=== PATIENT | female | born 1935 | race Caucasian/White ===

== ENCOUNTER 2022-01-08 02:07 | Observation (INO) ==
[2022-01-08] MEDS ORDERED: SODIUM CHLORIDE 0.9% 1000ML 1,000 ML IV SCH (02:15)
--- NOTE | 2022-01-08 02:21 | Emergency Department Note ---
History of Present Illness General Chief complaint: Illness Stated complaint: GENERALIZED ILLNESS,DIARRHEA, COUGH Time Seen by Provider: 01/08/22 02:14 Source: patient Mode of arrival: EMS Limitations: no limitations History of Present Illness Provider complaint: Cough, diarrhea, fatigue Onset (ago): day(s) 4 Treatments prior to arrival: none This is an 86-year-old female presents emergency department via EMS due to multiple complaints and recent illness. Patient states 4 days ago she began having a cough. She states the cough is typically nonproductive. Patient does have a prior history of tobacco abuse although does not use any home nebulizers/MDIs or home oxygen. She denies any overt shortness of breath. She states she had decreased appetite and generalized fatigue. She states the family members that she lives with are also ill. She is vaccinated against COVID and influenza. She states today she began having diarrhea in addition. Patient denies any black or bloody stools. She denies abdominal pain. Patient denies any history of heart problems. Pt seen during a time of high acuity and national emergency pandemic while wearing PPE. Home Medications Medication Instructions Recorded Confirmed Type amlodipine 5 mg tablet 5 mg PO DAILY 01/08/22 01/08/22 History fesoterodine 4 mg tablet,extended 4 mg PO DAILY 01/08/22 01/08/22 History release 24 hr (Toviaz) levothyroxine 88 mcg tablet 88 mcg PO DAILYBB 01/08/22 01/08/22 History mineral oil 5 ml PO DAILY 01/08/22 01/08/22 History nateglinide 60 mg tablet 60 mg PO AC 01/08/22 01/08/22 History rosuvastatin 10 mg tablet 10 mg PO HS 01/08/22 01/08/22 History sodium bicarbonate 325 mg tablet 325 mg PO BID 01/08/22 01/08/22 History sotalol 80 mg tablet (Sotalol AF) 80 mg PO BID 01/08/22 01/08/22 History telmisartan 80 mg tablet 80 mg PO DAILY 01/08/22 01/08/22 History tramadol 50 mg tablet 50 mg PO Q6 PRN 01/08/22 01/08/22 History Allergies Allergy/AdvReac Type Severity Reaction Status Date / Time Penicillins Allergy Unknown Hives Verified 01/08/22 02:39 Past Med/Surg History Social History Smoking Status: Former smoker Hx Alcohol Use: No Hx Substance Use: No Preferred Language: Puerto Rican Communication Ability: Effective Curriculum Development Manager Required: No Beliefs That Will Affect Care: None Current Living Situation: Family Other Information That Helps Us Care for You: No Feels Safe at Home: Yes Safety Concerns: Feels Safe At This Time Assistive Devices: Glasses Review of Systems A total of 10 systems reviewed and were otherwise negative All systems reviewed & are unremarkable except as noted in HPI & below Physical Exam GENERAL: alert, well appearing, well nourished, no distress, non-toxic EYE EXAM: normal conjunctiva, PERRL and EOM's grossly intact OROPHARYNX: no exudate, no erythema, lips, buccal mucosa, and tongue normal and mucous membranes are moist NECK: supple, no nuchal rigidity, no adenopathy, non-tender LUNGS: Coarse b/l to auscultation. Normal chest wall mechanics, no w/r/r, coarse cough noted during exam HEART: no murmurs, S1 normal and S2 normal ABDOMEN: abdomen soft, non-tender, normo-active bowel sounds, no masses, no rebound or guarding. BACK: Back is symmetrical on inspection and there is no deformity, no midline tenderness, no CVA tenderness. SKIN: no rashes and no bruising UPPER EXTREMITIES: upper extremities are grossly normal. FROM, nml pulses b/l. LOWER EXTREMITIES: No pitting edema. FROM, nml pulses b/l. NEURO EXAM: Normal sensorium, cranial nerves II-XII grossly intact, normal speech, no gross weakness of arms, no gross weakness of legs. Gross sensation intact. Course Administered Medications Amlodipine Besylate (Amlodipine Besylate 5 Mg Tab) 5 mg PO DAILY [facility] Stop: 02/07/22 08:59 Last Admin: 01/09/22 08:58 Dose: 5 mg Documented by: [id number] Admin: 01/08/22 10:29 Dose: 5 mg Documented by: [id number] Heparin Sodium (Porcine) (Heparin Sod 5,000 Unit/0.5 Ml Vial) 5,000 units SQ Q8 [facility] Stop: 02/07/22 13:59 Last Admin: 01/09/22 14:58 Dose: 5,000 units Documented by: [id number] Admin: 01/09/22 05:31 Dose: 5,000 units Documented by: [id number] Admin: 01/08/22 21:58 Dose: 5,000 units Documented by: [id number] Admin: 01/08/22 12:16 Dose: 5,000 units Documented by: [id number] Insulin Aspart (Insulin Aspart Per Unit) 0 units SC ACHS [facility] Stop: 02/07/22 09:14 Last Admin: 01/09/22 20:19 Dose: Not Given Documented by: [id number] Admin: 01/09/22 17:47 Dose: Not Given Documented by: [id number] Admin: 01/09/22 12:13 Dose: 2 units Documented by: [id number] Cosigned by: [id number] Admin: 01/09/22 08:59 Dose: Not Given Documented by: [id number] Admin: 01/08/22 21:52 Dose: Not Given Documented by: [id number] Admin: 01/08/22 17:24 Dose: Not Given Documented by: [id number] Cosigned by: [id number] Admin: 01/08/22 12:16 Dose: 2 units Documented by: [id number] Cosigned by: [id number] Admin: 01/08/22 09:01 Dose: Not Given Documented by: [id number] Cosigned by: [id number] Ipratropium [place] (Ipratropium [place] Neb Soln 0.02% 2.5 Ml Vial) 0.5 mg INH Q4H PRN PRN Reason: Shortness Of Breath Or Wheezing Stop: 02/07/22 08:48 Last Admin: 01/09/22 00:41 Dose: 0.5 mg Documented by: [id number] Levalbuterol HCl (Levalbuterol 1.25mg/0.5ml Neb) 1.25 mg INH Q4H PRN PRN Reason: Shortness Of Breath Or Wheezing Stop: 02/07/22 08:48 Last Admin: 01/09/22 00:41 Dose: 1.25 mg Documented by: [id number] Levothyroxine Sodium (Levothyroxine Sodium 88 Mcg Tablet) [facility] Stop: 02/07/22 09:14 Last Admin: 01/09/22 05:32 Dose: 88 mcg Documented by: [id number] Admin: 01/08/22 10:29 Dose: 88 mcg Documented by: [id number] Oseltamivir Phosphate (Oseltamivir Phosphate Susp 30 Mg/5 Ml Udp) 30 mg PO DAILY [facility]; Protocol Stop: 01/12/22 09:01 Last Admin: 01/09/22 10:30 Dose: 30 mg Documented by: [id number] Rosuvastatin Calcium (Rosuvastatin Calcium 10 Mg Tab) 10 mg PO HS [facility] Stop: 02/07/22 20:59 Last Admin: 01/09/22 20:25 Dose: 10 mg Documented by: [id number] Admin: 01/08/22 21:58 Dose: 10 mg Documented by: [id number] Sotalol HCl (Sotalol Hcl 80 Mg Tab) 80 mg PO BID [facility] Stop: 02/07/22 09:44 Last Admin: 01/09/22 20:19 Dose: Not Given Documented by: [id number] Admin: 01/09/22 08:58 Dose: 80 mg Documented by: [id number] Admin: 01/08/22 21:51 Dose: 80 mg Documented by: [id number] Admin: 01/08/22 10:29 Dose: 80 mg Documented by: [id number] Telmisartan (Telmisartan 40 Mg Tab) 80 mg PO DAILY [facility] Stop: 02/07/22 08:59 Last Admin: 01/09/22 08:58 Dose: 80 mg Documented by: [id number] Admin: 01/08/22 10:29 Dose: 80 mg Documented by: [id number] Discontinued Medications Albuterol (Albut/Ipratrop 3mg/0.5mg Neb 3 Ml Vial) 3 ml NEB NOW STA; Protocol Stop: 01/08/22 06:02 Last Admin: 01/08/22 06:24 Dose: 3 ml Documented by: [id number] Sodium Chloride (Nss 1000ml) 1,000 mls @ 125 mls/hr IV .Q8H [facility] Stop: 02/07/22 02:14 Last Infusion: 01/08/22 09:00 Dose: 0 mls/hr Documented by: [id number] Admin: 01/08/22 02:29 Dose: 125 mls/hr Documented by: [id number] Oseltamivir Phosphate (Oseltamivir Phosphate Susp 30 Mg/5 Ml Udp) 30 mg PO NOW STA; Protocol Stop: 01/08/22 05:53 Last Admin: 01/08/22 06:24 Dose: 30 mg Documented by: [id number] Medical Decision Making Differential Diagnosis Differential: Viral, Bacterial, Parasitic, Iatrogenic, C-Diff, Malabsorbtion, Irritable Bowel Disease, IBS, Ischemic Bowel, amongst other pathologies entertained. Medical Records Attestation: I reviewed the patient's medical records. Home Medications Current Medication List: was personally reviewed by me Laboratory Data Attestation: I reviewed the patient's lab results. Result diagrams: 01/09/22 06:03 01/09/22 06:03 Lab Results 01/08/22 01/08/22 01/08/22 Range/Units 02:24 02:24 02:24 WBC 14.45 H (4.8-10.8) K/uL RBC 4.95 (4.2-5.4) M/uL Hgb 13.8 (12.0-16.0) g/dL Hct 40.6 (37-47) % MCV 82.0 (80-100) fL MCH 27.9 (25-34) pg MCHC 34.0 (32-36) g/dL RDW Std Deviation 41.7 (36.4-46.3) fL RDW Coeff of Jeremy 13.9 (11.5-14.5) % Plt Count 278 (130-400) K/uL MPV 9.6 (7.4-10.4) fL Immature Gran % (Auto) 0.3 % Neut % (Auto) 83.6 % Lymph % (Auto) 9.1 % [place] % (Auto) 5.5 % Eos % (Auto) 1.3 % Baso % (Auto) 0.2 % Neut # (Auto) 12.07 H (1.4-6.5) K/uL Lymph # (Auto) 1.31 (1.2-3.4) K/uL [place] # (Auto) 0.80 H (0.11-0.59) K/uL Eos # (Auto) 0.19 (0-0.5) K/uL Baso # (Auto) 0.03 (0-0.2) K/uL Immature Gran # (Auto) 0.05 H (0.00-0.02) K/uL Sodium 128 L (136-145) mmol/L Potassium 4.2 (3.5-5.1) mmol/L Chloride 97 L (98-107) mmol/L Carbon Dioxide 20 L (21-32) mmol/L Anion Gap 11 (3-11) BUN 20 (6-23) mg/dl Creatinine 2.14 H (0.6-1.2) mg/dl Est Cr Clr Drug Dosing 18.4 ml/min Est GFR ( Amer) 23.7 ml/min Est GFR (Non-Af Amer) 20.5 ml/min BUN/Creatinine Ratio 9.3 L (10-20) Glucose 155 H (70-99(Fasting)) mg/dl Osmolality (280-300) mOsm/kg Calcium 9.2 (8.5-10.1) mg/dl Magnesium 2.0 (1.7-2.4) mg/dl Total Bilirubin 0.5 (0.2-1.0) mg/dl AST 11 L (13-39) U/L ALT 9 (7-52) U/L Alkaline Phosphatase 90 (34-104) U/L Troponin I High Sens 7.0 (0-14) pg/ml B-Natriuretic Peptide 121 H (0-100) pg/ml Total Protein 8.1 (6.0-8.3) gm/dl Albumin 4.1 (3.4-5.0) gm/dl Globulin 4.0 (2.5-4.0) gm/dl Albumin/Globulin Ratio 1.0 (0.9-2) TSH (0.300-4.500) uIu/ml Free T4 (0.61-1.60) ng/dl 01/08/22 01/08/22 Range/Units 02:24 02:24 WBC (4.8-10.8) K/uL RBC (4.2-5.4) M/uL Hgb (12.0-16.0) g/dL Hct (37-47) % MCV (80-100) fL MCH (25-34) pg MCHC (32-36) g/dL RDW Std Deviation (36.4-46.3) fL RDW Coeff of Jeremy (11.5-14.5) % Plt Count (130-400) K/uL MPV (7.4-10.4) fL Immature Gran % (Auto) % Neut % (Auto) % Lymph % (Auto) % [place] % (Auto) % Eos % (Auto) % Baso % (Auto) % Neut # (Auto) (1.4-6.5) K/uL Lymph # (Auto) (1.2-3.4) K/uL [place] # (Auto) (0.11-0.59) K/uL Eos # (Auto) (0-0.5) K/uL Baso # (Auto) (0-0.2) K/uL Immature Gran # (Auto) (0.00-0.02) K/uL Sodium (136-145) mmol/L Potassium (3.5-5.1) mmol/L Chloride (98-107) mmol/L Carbon Dioxide (21-32) mmol/L Anion Gap (3-11) BUN (6-23) mg/dl Creatinine (0.6-1.2) mg/dl Est Cr Clr Drug Dosing ml/min Est GFR ( Amer) ml/min Est GFR (Non-Af Amer) ml/min BUN/Creatinine Ratio (10-20) Glucose (70-99(Fasting)) mg/dl Osmolality 281 (280-300) mOsm/kg Calcium (8.5-10.1) mg/dl Magnesium (1.7-2.4) mg/dl Total Bilirubin (0.2-1.0) mg/dl AST (13-39) U/L ALT (7-52) U/L Alkaline Phosphatase (34-104) U/L Troponin I High Sens (0-14) pg/ml B-Natriuretic Peptide (0-100) pg/ml Total Protein (6.0-8.3) gm/dl Albumin (3.4-5.0) gm/dl Globulin (2.5-4.0) gm/dl Albumin/Globulin Ratio (0.9-2) TSH 4.725 H (0.300-4.500) uIu/ml Free T4 1.55 (0.61-1.60) ng/dl Imaging Data My Impression: X-ray: I interpreted the following studies. Chest: A single view study of the chest was reviewed and was negative for cardiomegaly, focal infiltrate, effusion, pulmonary edema, or wide mediastinum. ECG Data Attestation: I personally reviewed and interpreted this ECG as follows: Indication: + weakness Rate (beats per minute): 72 Rhythm: + normal sinus ECG Intervals/blocks: + Left bundle branch block ECG Harman: + Left axis deviation ECG ST segments: + Nonspecific ST abnormalities MDM Narrative An order was placed for continuous cardiac monitoring. The monitor shows a rate of _70_ with _normal sinus__ rhythm. This is an elderly female who presents with cough, weakness, diarrhea. VS stable. Coarse cough noted but patient denies SOB, no hypoxia noted. Patient lives with family who have also been ill. Labs revealed hyponatremia and elevated creatinine. Patient had been started on on gentle IVF rehydration due to concern for decreased appetite and diarrhea. No hx of IBS/IBD. Patient found to have influenza. 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 Hyponatremia appears new. Case discussed with hospitalist for additional evaluation and treatment. Impression & Plan Generalized weakness, Hyponatremia, Diarrhea, Influenza, CKD (chronic kidney disease) Discharge Plan Visit Data Chief Complaint: Illness Stated Complaint: GENERALIZED ILLNESS,DIARRHEA, COUGH Discharge Problem: Generalized weakness, Hyponatremia, Diarrhea, Influenza, CKD (chronic kidney disease) Patient Disposition: Admitted As Inpatient Discharge Instructions Interventions: ED Discharge Assessment Last Done: 01/08/22 07:48 Discharge Problem: Diarrhea Qualifiers: Diarrhea type: unspecified type Qualified Code(s): R19.7 - Diarrhea, unspecified CKD (chronic kidney disease) Qualifiers: Chronic kidney disease stage: unspecified stage Qualified Code(s): N18.9 - Chronic kidney disease, unspecified
[2022-01-08 02:37] LABS: Basophils # (auto) 0.03 K/uL (0-0.2); Basophils % (auto) 0.2 %; Eosinophils # (auto) 0.19 K/uL (0-0.5); Eosinophils % (auto) 1.3 %; Hematocrit (blood only) 40.6 % (37-47); Hemoglobin 13.8 g/dL (12.0-16.0); Immature Granulocytes # (auto) 0.05 K/uL (0.00-0.02); Immature Granulocytes % (auto) 0.3 %; Lymphocytes # (auto) 1.31 K/uL (1.2-3.4); Lymphocytes % (auto) 9.1 %; Mean Corpuscular Hemoglobin 27.9 pg (25-34); Mean Platelet Volume 9.6 fL (7.4-10.4); Monocytes % (auto) 5.5 %; Neutrophils # (auto) 12.07 K/uL (1.4-6.5); Neutrophils % (auto) 83.6 %; Platelet Count 278 K/uL (130-400); RDW Coefficient of Variation 13.9 % (11.5-14.5); RDW Standard Deviation 41.7 fL (36.4-46.3); Red Blood Count 4.95 M/uL (4.2-5.4); White Blood Count 14.45 K/uL (4.8-10.8)
[2022-01-08 03:09] LABS: Albumin Level 4.1 gm/dl (3.4-5.0); BUN Creatinine Ratio 9.3 (10-20); Bilirubin,Total 0.5 mg/dl (0.2-1.0); Calcium 9.2 mg/dl (8.5-10.1); Creatinine Clr Calc Pharmacy 18.4 ml/min; Est GFR (African American) 23.7 ml/min; Est GFR (Non-African American) 20.5 ml/min; Potassium 4.2 mmol/L (3.5-5.1); Total Protein 8.1 gm/dl (6.0-8.3)
[2022-01-08 03:11] LABS: Influenza B virus by PCR Negative (Neg); RSV by PCR Negative (Neg); SARS CoV2 RNA(COVID-19) InHosp NEGATIVE (Negative)
[2022-01-08 03:17] LABS: Influenza A virus by PCR Positive (Neg)
[2022-01-08] MEDS ORDERED: OSELTAMIVIR PHOSPHATE SUSP 30 MG/5 ML UDP PO STA (05:52)
[2022-01-08] MEDS ORDERED: ALBUT/IPRATROP 3MG/0.5MG NEB 3 ML VIAL NEB STA (06:01)
[2022-01-08 06:02] LABS: Thyroid Stimulating Hormone 4.725 uIu/ml (0.300-4.500)
--- NOTE | 2022-01-08 06:02 | History & Physical Report ---
Date of Service January 08, 2022 Assessment & Plan (1) Hyponatremia: Plan: Secondary to poor p.o. intake,/diarrhea symptoms secondary to influenza chronic CHF, patient on the dry side hypertension, stable hyperlipidemia on statin Rx Hypothyroidism, TSH slight elevated CRI, creatinine at baseline anxiety/mood disorder, at baseline DM2 on oral medications, well-controlled as of recent hemoglobin A1c of 28 July 2021 past tobacco abuse Medical telemetry Careful correction of sodium Hyponatremia work-up Nephrology consult if with worsening Tamiflu dosed for renal function given patient risk factors Basal bolus insulin, ISS BG goal 1 10-1 40, update hemoglobin A1c PT OT eval DVT prophylaxis. Heparin subcu Full code Patient son requesting updates from providers. Mr. Devin Arenas, contact #[phone]. Text document was generated using [employer] voice recognition software. It may contain grammatical or spelling errors. Kindly contact undersigned for clarification of any documentation item in question. History of Present Illness Chief Complaint: Weakness Primary Care Provider: OMI WHITTAKER History obtained from patient, family, and records. Medical history significant for chronic CHF, hypertension, hyperlipidemia, CRI (baseline creatinine 2.4-2.5), hypothyroidism, anxiety/mood disorder, DM2 on oral medications, past tobacco abuse. Patient not feeling well the last few days. Dry cough symptoms without chest pain, SOB. Poor appetite. Patient feeling achy all over. Sick contacts at home. Patient received COVID-19 and influenza vaccinations. Watery diarrhea without abdominal pain complaints. No recent antibiotic Rx. Patient brought to the ER for evaluation. 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 Allergies Allergy/AdvReac Type Severity Reaction Status Date / Time Penicillins Allergy Unknown Hives Verified 01/08/22 02:39 Home Medications Medication Instructions Recorded Confirmed Type amlodipine 5 mg tablet 5 mg PO DAILY 01/08/22 01/08/22 History fesoterodine 4 mg tablet,extended 4 mg PO DAILY 01/08/22 01/08/22 History release 24 hr (Toviaz) levothyroxine 88 mcg tablet 88 mcg PO DAILYBB 01/08/22 01/08/22 History mineral oil 5 ml PO DAILY 01/08/22 01/08/22 History nateglinide 60 mg tablet 60 mg PO AC 01/08/22 01/08/22 History rosuvastatin 10 mg tablet 10 mg PO HS 01/08/22 01/08/22 History sotalol 80 mg tablet (Sotalol AF) 80 mg PO BID 01/08/22 01/08/22 History telmisartan 80 mg tablet 80 mg PO DAILY 01/08/22 01/08/22 History tramadol 50 mg tablet 50 mg PO Q6 PRN 01/08/22 01/08/22 History Past Med/Surg History Social History Smoking Status: Former smoker Preferred Language: Turkmen Feels Safe at Home: Yes Review of Systems Review of Systems: As per HPI, all other systems reviewed and negative Physical Exam Physical Exam: GENERAL: uncomfortable, obese, wane, slightly hard of hearing, no respiratory distress SKIN: Pallor, warm HEENT: Pale palpebral conjunctivae, no ptosis, dry buccal mucosa NECK : Supple, short neck, no tenderness CHEST : Expiratory wheezes, no tenderness HEART : RRR, no obvious murmurs ABDOMEN: Some distention, nontender EXTREMITIES : Minimal LE swelling, no LE tenderness, no other conspicuous deformities noted NEUROLOGIC : Coherent, no facial asymmetry, slightly hard of hearing, gait and stance not assessed Results & Data Results & Data ([facility]) Vital Signs (Past 12 Hours) Vital Signs Temp Pulse Resp BP Pulse Ox 01/08/22 05:30 70 20 139/64 97 01/08/22 05:00 68 20 137/57 L 97 01/08/22 04:30 69 18 139/81 96 01/08/22 04:00 69 17 132/53 L 95 01/08/22 03:31 74 23 161/69 H 97 01/08/22 03:00 73 24 122/77 97 01/08/22 02:30 72 20 162/73 H 97 01/08/22 02:18 36.7 C 74 16 169/68 H 98 Laboratory Results Laboratory Results WBC 14.45 K/uL (4.8-10.8) H 01/08/22 02:24 RBC 4.95 M/uL (4.2-5.4) 01/08/22 02:24 Hgb 13.8 g/dL (12.0-16.0) 01/08/22 02:24 Hct 40.6 % (37-47) 01/08/22 02:24 MCV 82.0 fL (80-100) 01/08/22 02:24 MCH 27.9 pg (25-34) 01/08/22 02:24 MCHC 34.0 g/dL (32-36) 01/08/22 02:24 RDW Std Deviation 41.7 fL (36.4-46.3) 01/08/22 02:24 RDW Coeff of Jeremy 13.9 % (11.5-14.5) 01/08/22 02:24 Plt Count 278 K/uL (130-400) 01/08/22 02:24 MPV 9.6 fL (7.4-10.4) 01/08/22 02:24 Immature Gran % (Auto) 0.3 % 01/08/22 02:24 Neut % (Auto) 83.6 % 01/08/22 02:24 Lymph % (Auto) 9.1 % 01/08/22 02:24 [place] % (Auto) 5.5 % 01/08/22 02:24 Eos % (Auto) 1.3 % 01/08/22 02:24 Baso % (Auto) 0.2 % 01/08/22 02:24 Neut # (Auto) 12.07 K/uL (1.4-6.5) H 01/08/22 02:24 Lymph # (Auto) 1.31 K/uL (1.2-3.4) 01/08/22 02:24 [place] # (Auto) 0.80 K/uL (0.11-0.59) H 01/08/22 02:24 Eos # (Auto) 0.19 K/uL (0-0.5) 01/08/22 02:24 Baso # (Auto) 0.03 K/uL (0-0.2) 01/08/22 02:24 Immature Gran # (Auto) 0.05 K/uL (0.00-0.02) H 01/08/22 02:24 Sodium 128 mmol/L (136-145) L 01/08/22 02:24 Potassium 4.2 mmol/L (3.5-5.1) 01/08/22 02:24 Chloride 97 mmol/L (98-107) L 01/08/22 02:24 Carbon Dioxide 20 mmol/L (21-32) L 01/08/22 02:24 Anion Gap 11 (3-11) 01/08/22 02:24 BUN 20 mg/dl (6-23) 01/08/22 02:24 Creatinine 2.14 mg/dl (0.6-1.2) H 01/08/22 02:24 Est Cr Clr Drug Dosing 18.4 ml/min 01/08/22 02:24 Est GFR ( Amer) 23.7 ml/min 01/08/22 02:24 Est GFR (Non-Af Amer) 20.5 ml/min 01/08/22 02:24 BUN/Creatinine Ratio 9.3 (10-20) L 01/08/22 02:24 Glucose 155 mg/dl (70-99(Fasting)) H 01/08/22 02:24 Osmolality 281 mOsm/kg (280-300) 01/08/22 02:24 Calcium 9.2 mg/dl (8.5-10.1) 01/08/22 02:24 Magnesium 2.0 mg/dl (1.7-2.4) 01/08/22 02:24 Total Bilirubin 0.5 mg/dl (0.2-1.0) 01/08/22 02:24 AST 11 U/L (13-39) L 01/08/22 02:24 ALT 9 U/L (7-52) 01/08/22 02:24 Alkaline Phosphatase 90 U/L (34-104) 01/08/22 02:24 Troponin I High Sens 7.0 pg/ml (0-14) 01/08/22 02:24 B-Natriuretic Peptide 121 pg/ml (0-100) H 01/08/22 02:24 Total Protein 8.1 gm/dl (6.0-8.3) 01/08/22 02:24 Albumin 4.1 gm/dl (3.4-5.0) 01/08/22 02:24 Globulin 4.0 gm/dl (2.5-4.0) 01/08/22 02:24 Albumin/Globulin Ratio 1.0 (0.9-2) 01/08/22 02:24 SARS-CoV-2 (PCR) NEGATIVE (Negative) 01/08/22 Unknown Influenza Type A (PCR) Positive (Neg) A* 01/08/22 Unknown Influenza Type B (PCR) Negative (Neg) 01/08/22 Unknown RSV (RT-PCR) Negative (Neg) 01/08/22 Unknown Diagnostic Findings Chest x-ray as per my interpretation cardiomegaly EKG as per my interpretation : Rate 70, NSR, LAD, LAFB, LBBB
--- NOTE | 2022-01-08 06:44 | XRay Report ---
XR chest 1V portable HISTORY: 86 years-old Female cough acute cough COMPARISON: None TECHNIQUE: Portable AP view of the chest FINDINGS: Cardiac silhouette is enlarged. There is a curvilinear line projected over the right lung apex. No pl eural effusion, airspace consolidation or overt pulmonary edema. Bones of the chest appear grossly in tact. IMPRESSION: 1. Cardiomegaly without pulmonary edema. 2. Curvilinear line projected over the right lung apex. This could be correlated with follow-up inspi ration and expiration views to exclude a small pneumothorax. ACT 112: Negative or not required by law. The above report was generated using voice recognition software. It may contain grammatical, syntax o r spelling errors. Electronically signed by: Raymundo Cortez M.D. 01/08/2022 6:43 AM
[2022-01-08 06:50] LABS: T4 Free Thyroxine 1.55 ng/dl (0.61-1.60)
[2022-01-08] MEDS ORDERED: XOPENEX/ATROVENT 1.25mg/0.5MG NEB COMBO NEB PRN (08:49)
[2022-01-08] MEDS ORDERED: IPRATROPIUM BROMIDE NEB SOLN 0.02% 2.5 ML VIAL INH PRN (08:49)
[2022-01-08] MEDS ORDERED: CARBOHYDRATES FOR HYPOGLYCEMIA PO PRN (08:49)
[2022-01-08] MEDS ORDERED: GLUCOSE 10 TABS/TUBE PO PRN (08:49)
[2022-01-08] MEDS ORDERED: PROMETHAZINE HCL 12.5 MG in SODIUM CHLORIDE 0.9% 50 ML IV PRN (08:49)
[2022-01-08] MEDS ORDERED: GLUCOSE 40% GEL 15 GM TUBE PO PRN (08:49)
[2022-01-08] MEDS ORDERED: DEXTROSE 50% 50 ML SYRINGE IV PRN (08:49)
[2022-01-08] MEDS ORDERED: LEVALBUTEROL 1.25MG/0.5ML NEB INH PRN (08:49)
[2022-01-08] MEDS ORDERED: GLUCAGON FOR INJ 1 MG VIAL SQ PRN (08:49)
[2022-01-08] MEDS ORDERED: oxyCODONE HCL IR 5 MG TAB (IMMEDIATE RELEASE) PO PRN (08:49)
[2022-01-08] MEDS ORDERED: ACETAMINOPHEN 325 MG TAB PO PRN (08:49)
[2022-01-08] MEDS: INSULIN ASPART PER UNIT SC SCH ×4 (09:01→21:52)
[2022-01-08] MEDS: amLODIPine BESYLATE 5 MG TAB PO SCH (10:29)
[2022-01-08] MEDS: LEVOTHYROXINE SODIUM 88 MCG TABLET PO SCH (10:29)
[2022-01-08] MEDS: SOTALOL HCL 80 MG TAB PO SCH ×2 (10:29→21:51)
[2022-01-08] MEDS: TELMISARTAN 40 MG TAB PO SCH (10:29)
--- NOTE | 2022-01-08 10:35 | XRay Report ---
XR chest 2V PA/lateral HISTORY: 86 years-old Female Rule out Pneumothorax acute shortness of breath COMPARISON: Chest radiograph of same day at 2:40 AM TECHNIQUE: AP and lateral views of the chest FINDINGS: Cardiac silhouette is mildly enlarged. The right apical line seen on the prior study is not appreciat ed on the current study and was likely artifactual. No pneumothorax, pleural effusion, airspace conso lidation or overt pulmonary edema. Degenerative changes of the shoulders and spine. IMPRESSION: No acute process, specifically no pneumothorax is identified. ACT 112: Negative or not required by law. The above report was generated using voice recognition software. It may contain grammatical, syntax o r spelling errors. Electronically signed by: Raymundo Cortez M.D. 01/08/2022 10:33 AM
[2022-01-08] MEDS: HEPARIN SOD 5,000 UNIT/0.5 ML VIAL SQ SCH ×2 (12:16→21:58)
--- NOTE | 2022-01-08 16:46 | Hospitalist Progress Note ---
Date of Service January 08, 2022 Assessment & Plan (1) Hyponatremia: Plan: Hyponatremia Likely secondary to dehydration/Poor oral intake, diarrhea Received IV fluids Monitor Sodium levels Sodium 129 Urine sodium, osmolality pending Urine analysis pending Influenza A infection Negative COVID, RSV screen --CXR:No acute process Continue Oseltamivir Saturating well on room air Droplet precautions Diarrhea Likely secondary to above Stool for C. difficile negative Monitor volume status Chronic CHF No signs of volume overload Monitor volume status Hypertension Continue telmisartan, amlodipine Also on Sotalol Hyperlipidemia Continue statin Hypothyroidism Mildly elevated TSH Normal free T4 Continue levothyroxine CKD IV Baseline creatinine ~ 2.4 Monitor volume status Avoid nephrotoxic agents as able DM II Hold PO meds Last HbA1C 6.Jul ISS while hospitalized Anxiety/mood disorder at baseline Past Tobacco abuse Generalized weakness PT OT eval DVT Px: Heparin SQ Code Status Full code Admission and Anticipated Discharge Date Admission Date: January 08, 2022 Subjective Patient is seen and examined at bedside States feeling slightly better this morning Reports cough, generalized weakness Also had a loose bowel movement today Denies any chest pain, dyspnea, abdominal pain, dizziness Offers no other complaints Review of Systems Review of Systems: All systems reviewed & are unremarkable except as noted in Subjective Physical Exam Physical Exam: Exam: Vitals signs as noted above General Appearance:Moderately built and nourished, no apparent distress, Elderly Head: normocephalic, Atraumatic Eyes: normal inspection, EOMI Neck: supple, Trachea midline Respiratory/Chest: Normal breath sounds, scant wheezes Cardiovascular: S1, S2, No murmur Abdomen/GI:Soft, Non tender, Bowel sounds present Extremities/Musculoskeletal:normal inspection, Trace pedal edema Neurologic/Psych:AAOX3, grossly no focal neurological deficits Skin: normal color, warm Results & Data Results & Data ([facility]) Vital Signs (Past 12 Hours) Vital Signs Temp Pulse Pulse Resp BP BP Pulse Ox 01/08/22 16:01 71 01/08/22 14:00 36.8 C 71 20 148/82 H 94 01/08/22 11:05 71 165/78 H 95 01/08/22 08:41 36.7 C 76 20 169/79 H 92 01/08/22 07:48 77 24 133/64 96 01/08/22 07:30 77 24 133/64 96 01/08/22 07:00 70 20 133/64 95 05/19/22 06:30 79 23 138/68 99 01/08/22 06:00 85 18 149/68 H 95 01/08/22 05:30 70 20 139/64 97 01/08/22 05:00 68 20 137/57 L 97 Laboratory Results Short CBC 01/08/22 Range/Units 02:24 WBC 14.45 H (4.8-10.8) K/uL Hgb 13.8 (12.0-16.0) g/dL Hct 40.6 (37-47) % Plt Count 278 (130-400) K/uL BMP 01/08/22 01/08/22 01/08/22 02:24 08:30 13:44 Sodium 128 L 130 L 129 L Potassium 4.2 Chloride 97 L Carbon Dioxide 20 L BUN 20 Creatinine 2.14 H Glucose 155 H Calcium 9.2 Liver Function 01/08/22 Range/Units 02:24 Total Bilirubin 0.5 (0.2-1.0) mg/dl AST 11 L (13-39) U/L ALT 9 (7-52) U/L Alkaline Phosphatase 90 (34-104) U/L Albumin 4.1 (3.4-5.0) gm/dl
--- NOTE | 2022-01-08 18:13 | Electrocardiogram Report ---
Test Reason : Blood Pressure : / mmHG Vent. Rate : 072 BPM Atrial Rate : 072 BPM P-R Int : 178 ms QRS Dur : 142 ms QT Int : 456 ms P-R-T Axes : 080 -44 100 degrees QTc Int : 499 ms Normal sinus rhythm with sinus arrhythmia Left axis deviation Left bundle branch block Abnormal ECG No previous ECGs available Confirmed by Jeff Valentine ([id number]) on 01/08/2022 6:12:40 PM Referred By: REFERRED SELF Confirmed By:Som Valentine
[2022-01-08] MEDS: ROSUVASTATIN CALCIUM 10 MG TAB PO SCH (21:58)
[2022-01-09] MEDS: HEPARIN SOD 5,000 UNIT/0.5 ML VIAL SQ SCH ×3 (05:31→22:09)
[2022-01-09] MEDS: LEVOTHYROXINE SODIUM 88 MCG TABLET PO SCH (05:32)
[2022-01-09 06:57] LABS: Basophils # (auto) 0.01 K/uL (0-0.2); Basophils % (auto) 0.1 %; Eosinophils # (auto) 0.05 K/uL (0-0.5); Eosinophils % (auto) 0.6 %; Hematocrit (blood only) 36.5 % (37-47); Hemoglobin 12.1 g/dL (12.0-16.0); Immature Granulocytes # (auto) 0.04 K/uL (0.00-0.02); Immature Granulocytes % (auto) 0.5 %; Lymphocytes # (auto) 1.54 K/uL (1.2-3.4); Lymphocytes % (auto) 17.8 %; Mean Corpuscular Hemoglobin 27.3 pg (25-34); Mean Corpuscular Hgb Conc 33.2 g/dL (32-36); Mean Corpuscular Volume 82.2 fL (80-100); Mean Platelet Volume 9.6 fL (7.4-10.4); Monocytes % (auto) 8.1 %; Neutrophils # (auto) 6.32 K/uL (1.4-6.5); Neutrophils % (auto) 72.9 %; Platelet Count 286 K/uL (130-400); RDW Coefficient of Variation 13.8 % (11.5-14.5); RDW Standard Deviation 41.8 fL (36.4-46.3); Red Blood Count 4.44 M/uL (4.2-5.4); White Blood Count 8.66 K/uL (4.8-10.8)
[2022-01-09 07:05] LABS: BUN Creatinine Ratio 8.8 (10-20); Calcium 8.7 mg/dl (8.5-10.1); Creatinine Clr Calc Pharmacy 20.2 ml/min; Est GFR (African American) 26.9 ml/min; Est GFR (Non-African American) 23.2 ml/min
[2022-01-09] MEDS: amLODIPine BESYLATE 5 MG TAB PO SCH (08:58)
[2022-01-09] MEDS: TELMISARTAN 40 MG TAB PO SCH (08:58)
[2022-01-09] MEDS: SOTALOL HCL 80 MG TAB PO SCH ×2 (08:58→20:19)
[2022-01-09] MEDS: INSULIN ASPART PER UNIT SC SCH ×4 (08:59→20:19)
[2022-01-09] MEDS: OSELTAMIVIR PHOSPHATE SUSP 30 MG/5 ML UDP PO SCH (10:30)
--- NOTE | 2022-01-09 16:29 | Hospitalist Progress Note ---
Date of Service January 09, 2022 Assessment & Plan (1) Hyponatremia: Plan: Hyponatremia Likely secondary to dehydration/Poor oral intake, diarrhea Received IV fluids Urine sodium, osmolality pending Urine analysis pending Monitor Sodium levels Sodium 130 Influenza A infection Negative COVID, RSV screen --CXR:No acute process Continue Oseltamivir Saturating well on room air Droplet precautions Diarrhea Likely secondary to above Stool for C. difficile negative Monitor volume status Improved Chronic CHF unclear Systolic or diastolic No signs of volume overload Monitor volume status Hypertension Continue telmisartan, amlodipine Also on Sotalol Hyperlipidemia Continue statin Hypothyroidism Mildly elevated TSH Normal free T4 Continue levothyroxine CKD IV Baseline creatinine ~ 2.4 Monitor volume status Avoid nephrotoxic agents as able DM II Hold PO meds Last HbA1C 6.Jul ISS while hospitalized Anxiety/mood disorder at baseline Past Tobacco abuse Generalized weakness PT OT eval DVT Px: Heparin SQ Code Status Full code Admission and Anticipated Discharge Date Admission Date: January 08, 2022 Subjective Patient is seen and examined at bedside Doing much better today Less cough today Denies any diarrhea, dyspnea, chest pain, abdominal pain, dizziness Offers no other complaints Review of Systems Review of Systems: All systems reviewed & are unremarkable except as noted in Subjective Physical Exam Physical Exam: Exam: Vitals signs as noted above General Appearance:Moderately built and nourished, no apparent distress, Elderly Head: normocephalic, Atraumatic Eyes: normal inspection, EOMI Neck: supple, Trachea midline Respiratory/Chest: Normal breath sounds, CTA Cardiovascular: S1, S2, No murmur Abdomen/GI:Soft, Non tender, Bowel sounds present Extremities/Musculoskeletal:normal inspection, Trace pedal edema Neurologic/Psych:AAOX3, grossly no focal neurological deficits Skin: normal color, warm Results & Data Results & Data ([facility]) Vital Signs (Past 12 Hours) Vital Signs Temp Pulse Pulse Resp BP BP Pulse Ox 01/09/22 15:18 36.7 C 69 17 136/76 93 01/09/22 10:54 36.9 C 59 L 18 117/71 91 01/09/22 08:49 01/09/22 08:00 70 01/09/22 06:48 36.9 C 68 18 145/72 H 94 Pulse Ox 01/09/22 15:18 01/09/22 10:54 01/09/22 08:49 92 01/09/22 08:00 01/09/22 06:48 Laboratory Results Short CBC 01/09/22 Range/Units 06:03 WBC 8.66 (4.8-10.8) K/uL Hgb 12.1 (12.0-16.0) g/dL Hct 36.5 L (37-47) % Plt Count 286 (130-400) K/uL BMP 01/09/22 06:03 Sodium 130 L Potassium 4.0 Chloride 101 Carbon Dioxide 21 BUN 17 Creatinine 1.93 H Glucose 90 Calcium 8.7
[2022-01-09] MEDS: ROSUVASTATIN CALCIUM 10 MG TAB PO SCH (20:25)
[2022-01-09 23:37] LABS: Appearance Urine Cloudy (Clear); Bacteria Urine Automated 3+ (Negative); Bilirubin Urine Negative (Negative); Blood Urine 1+ (Negative); Cast Urine Automated 0 /lpf (0-5); Color Urine Yellow; Epithelial Cell Urine Auto 20-30 /lpf (0-5); Glucose Urine UA Negative (Negative); Ketones Urine Negative (Negative); Leukocyte Esterase Urine 3+ (Negative); Nitrite Urine Negative (Negative); Protein Urine 1+ (Negative); Specific Gravity Urine 1.006 (1.000-1.030); Urobilinogen Urine Negative (Negative); pH Urine 6.5 (4.5-7.5)
[2022-01-10] MEDS: HEPARIN SOD 5,000 UNIT/0.5 ML VIAL SQ SCH (05:59)
[2022-01-10] MEDS: LEVOTHYROXINE SODIUM 88 MCG TABLET PO SCH (05:59)
[2022-01-10] MEDS ORDERED: cefTRIAXone SODIUM 1,000 MG in DEXTROSE 5% 50 ML IV SCH (08:45)
[2022-01-10] MEDS: INSULIN ASPART PER UNIT SC SCH ×2 (08:57→12:34)
[2022-01-10] MEDS: TELMISARTAN 40 MG TAB PO SCH (08:58)
[2022-01-10] MEDS: amLODIPine BESYLATE 5 MG TAB PO SCH (08:58)
[2022-01-10] MEDS: SOTALOL HCL 80 MG TAB PO SCH (08:58)
[2022-01-10 09:10] LABS: BUN Creatinine Ratio 11.5 (10-20); Calcium 8.8 mg/dl (8.5-10.1); Creatinine Clr Calc Pharmacy 21.3 ml/min; Est GFR (African American) 28.7 ml/min; Est GFR (Non-African American) 24.7 ml/min; Potassium 3.8 mmol/L (3.5-5.1)
[2022-01-10] MEDS: OSELTAMIVIR PHOSPHATE SUSP 30 MG/5 ML UDP PO SCH (09:13)
--- NOTE | 2022-01-10 14:50 | Hospitalist Progress Note ---
Date of Service January 10, 2022 Assessment & Plan (1) Hyponatremia: Plan: Hyponatremia Likely secondary to dehydration/Poor oral intake, diarrhea Received IV fluids Urine sodium 33 Urine Osmolality 169 Monitor Sodium levels Sodium 131 Influenza A infection Negative COVID, RSV screen --CXR:No acute process Continue Oseltamivir Saturating well on room air Droplet precautions Abnormal Urine Analysis Possible UTI Denies any urinary symptoms Urine Culture pending Empirically started on Rocephin Diarrhea Likely secondary to above Stool for C. difficile negative Monitor volume status Improved Chronic CHF unclear Systolic or diastolic No signs of volume overload Monitor volume status Hypertension Continue telmisartan, amlodipine Also on Sotalol Hyperlipidemia Continue statin Hypothyroidism Mildly elevated TSH Normal free T4 Continue levothyroxine CKD IV Baseline creatinine ~ 2.4 Monitor volume status Avoid nephrotoxic agents as able DM II Hold PO meds Last HbA1C 6.Jul ISS while hospitalized Anxiety/mood disorder at baseline Past Tobacco abuse Generalized weakness PT OT eval done DVT Px: Heparin SQ Code Status Full code Disposition Home Admission and Anticipated Discharge Date Admission Date: January 08, 2022 Subjective Patient is seen and examined at bedside No new complaints Eager to get discharged Minimal cough Denies any diarrhea, dyspnea, chest pain, dysuria, hematuria, abdominal pain, dizziness Offers no other complaints Review of Systems Review of Systems: All systems reviewed & are unremarkable except as noted in Subjective Physical Exam Physical Exam: Exam: Vitals signs as noted above General Appearance:Moderately built and nourished, no apparent distress, Elderly Head: normocephalic, Atraumatic Eyes: normal inspection, EOMI Neck: supple, Trachea midline Respiratory/Chest: Normal breath sounds, CTA Cardiovascular: S1, S2, No murmur Abdomen/GI:Soft, Non tender, Bowel sounds present Extremities/Musculoskeletal:normal inspection, Trace pedal edema Neurologic/Psych:AAOX3, grossly no focal neurological deficits Skin: normal color, warm Results & Data Results & Data ([facility]) Vital Signs (Past 12 Hours) Vital Signs Temp Pulse Pulse Resp BP BP Pulse Ox 01/10/22 10:53 36.6 C 67 18 129/72 95 01/10/22 08:00 75 01/10/22 07:56 36.6 C 69 16 161/69 H 94 01/10/22 04:32 81 01/10/22 02:52 37.1 C 66 18 152/77 H 95 Laboratory Results [facility] 01/10/22 07:40 Sodium 131 L Potassium 3.8 Chloride 101 Carbon Dioxide 22 BUN 21 Creatinine 1.83 H Glucose 110 H Calcium 8.8 Urine 01/09/22 Range/Units 23:22 Urine Color Yellow Urine Appearance Cloudy A (Clear) Urine pH 6.5 (4.5-7.5) Ur Specific [place] 1.006 (1.000-1.030) Urine Protein 1+ H (Negative) Urine Glucose (UA) Negative (Negative)
--- NOTE | 2022-01-10 15:00 | Discharge Summary ---
Date of Service January 10, 2022 Admission HPI Per Admitting Provider History obtained from patient, family, and records. Medical history significant for chronic CHF, hypertension, hyperlipidemia, CRI (baseline creatinine 2.4-2.5), hypothyroidism, anxiety/mood disorder, DM2 on oral medications, past tobacco abuse. Patient not feeling well the last few days. Dry cough symptoms without chest pain, SOB. Poor appetite. Patient feeling achy all over. Sick contacts at home. Patient received COVID-19 and influenza vaccinations. Watery diarrhea without abdominal pain complaints. No recent antibiotic Rx. Patient brought to the ER for evaluation. 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 Admission Exam Per Admitting Provider Physical Exam Physical Exam: GENERAL: uncomfortable, obese, wane, slightly hard of hearing, no respiratory distress SKIN: Pallor, warm HEENT: Pale palpebral conjunctivae, no ptosis, dry buccal mucosa NECK : Supple, short neck, no tenderness CHEST : Expiratory wheezes, no tenderness HEART : RRR, no obvious murmurs ABDOMEN: Some distention, nontender EXTREMITIES : Minimal LE swelling, no LE tenderness, no other conspicuous deformities noted NEUROLOGIC : Coherent, no facial asymmetry, slightly hard of hearing, gait and stance not assessed Principal Diagnosis Hyponatremia Influenza A infection Possible urinary tract infection Discharge Data Allergies Allergy/AdvReac Type Severity Reaction Status Date / Time Penicillins Allergy Unknown Hives Verified 01/08/22 02:39 Hospital Course (1) Hyponatremia: Hyponatremia Likely secondary to dehydration/Poor oral intake, diarrhea Received IV fluids Urine sodium 33 Urine Osmolality 169 Monitor Sodium levels Sodium 131 Influenza A infection Negative COVID, RSV screen --CXR:No acute process Continue Oseltamivir Saturating well on room air Droplet precautions Abnormal Urine Analysis Possible UTI Denies any urinary symptoms Urine Culture pending Empirically started on Rocephin Diarrhea Likely secondary to above Stool for C. difficile negative Monitor volume status Improved Chronic CHF unclear Systolic or diastolic No signs of volume overload Monitor volume status Hypertension Continue telmisartan, amlodipine Also on Sotalol Hyperlipidemia Continue statin Hypothyroidism Mildly elevated TSH Normal free T4 Continue levothyroxine CKD IV Baseline creatinine ~ 2.4 Monitor volume status Avoid nephrotoxic agents as able DM II Hold PO meds Last HbA1C 6.Jul ISS while hospitalized Anxiety/mood disorder at baseline Past Tobacco abuse Generalized weakness PT OT eval done DVT Px: Heparin SQ Code Status Full code Disposition Home Total Time Total Time Spent Total Time Spent (In Minutes): 46 minutes Discharge Plan Discharge Items Patient Disposition: Home - Self-Care Reason For Visit: HYPONATREMIA Discharge Diagnosis: Hyponatremia Influenza A infection Possible urinary tract infection Activity: Per Instructions section Exercise/Sports: Gradually increase as tolerated Non-emergency contact: Primary Care Provider Call non-emergency contact if: you have any medication questions, your symptoms worsen, your pain is concerning for you and you have a fever Follow-up/Referrals: Richard Rooney, [Primary Care Provider] - Diet: Carb Consistent or DM2 Addtl Attending Provider Instructions: Follow-up history of primary care physician in 1 week as advised --- Your urine culture is pending at the time of discharge. Follow-up with your physician for results. --- Continue Tamiflu for influenza infection, Cefdinir for urinary tract infection as prescribed. Seek immediate medical attention if your symptoms reoccur or worsen Please take all medications as instructed on discharge list below. Please call if you have any questions or problems. You can reach a [facility] hospitalist on duty at [facility] 24 hours a day by calling [phone] Pending Studies at Discharge: Yes Studies:: Urine Culture Stand-Alone Forms: [facility], Smoking Cessation Medications and DC Order Prescriptions: New oseltamivir [Tamiflu] 30 mg capsule 30 mg PO DAILY Qty: 2 RF: 0 cefdinir 300 mg capsule 300 mg PO DAILY Qty: 4 RF: 0 Continued sotalol [Sotalol AF] 80 mg tablet 80 mg PO BID RF: 0 amlodipine 5 mg tablet 5 mg PO DAILY RF: 0 nateglinide 60 mg tablet 60 mg PO AC RF: 0 levothyroxine 88 mcg tablet 88 mcg PO DAILYBB RF: 0 Toviaz 4 mg tablet extended release 24 hr 4 mg PO DAILY RF: 0 tramadol 50 mg tablet 50 mg PO Q6 PRN (Reason: mod-severe pain) RF: 0 telmisartan 80 mg tablet 80 mg PO DAILY RF: 0 rosuvastatin 10 mg tablet 10 mg PO HS RF: 0 mineral oil Oil 5 ml PO DAILY RF: 0 sodium bicarbonate 325 mg tablet 325 mg PO BID RF: 0 Discharge Orders: Discharge Order (Routine); Ordered 01/10/22 Ordered By: Kevin Whitley Admission Data Admit Date/Time: 01/08/22 06:05 Attending Provider: Kevin Whitley Admit Provider: Devon Pantoja Primary Care Provider: Richard Rooney
== END 2022-01-10 16:08 | disposition home or self-care (01) | DRG 194 ==
LOC: ED 02:07 → 2N 06:05 → INTOOBSV 06:05 → 2N 07:48

== ENCOUNTER 2023-04-07 13:40 | Inpatient (IN) ==
[2023-04-07] MEDS ORDERED: SODIUM CHLORIDE 0.9% 500 ML IV ONE (13:53)
[2023-04-07] MEDS ORDERED: ONDANSETRON INJ 2 MG/ML 2 ML VIAL IV STA (13:53)
--- NOTE | 2023-04-07 13:54 | Emergency Department Note ---
Impression & Plan Respiratory failure with hypoxia, Hyponatremia, CKD (chronic kidney disease), Junctional rhythm ED Provider Note NAME: BILL PALAFOX AGE: 87 SEX: F : 1935 ARRIVES VIA: Ambulance INFORMANT: Patient ED PROVIDER(S): Zack Rawls DO CHIEF COMPLAINT: abdominal pain HPI: Patient is an 87-year-old female with a past medical history of hypertension, hyperlipidemia, diabetes who presents to the ER for periumbilical abdominal pain which started 2 days ago. Last bowel movement was 2 days ago. She admits to nausea and 1 episode of vomiting. Denies any headache or change in vision. No chest pain or shortness of breath. No dysuria, urgency, or frequency. No other exacerbating or remitting factors. PAST MEDICAL HISTORY:See Below PAST SURGICAL HISTORY:See Below FAMILY HISTORY:See Below SOCIAL HISTORY:See Below HOME MEDICATIONS:See Below ALLERGIES:See Below VITALS:See Below PHYSICAL EXAMINATION: GENERAL: Sitting up in bed, alert, well appearing, well nourished, no distress, non-toxic EYE EXAM: normal conjunctiva. OROPHARYNX: no exudate, no erythema, lips, buccal mucosa, and tongue normal and mucous membranes are moist NECK: supple, no nuchal rigidity, no adenopathy, non-tender LUNGS: Clear to auscultation. Normal chest wall mechanics HEART: no murmurs, S1 normal and S2 normal ABDOMEN: abdomen soft, tender to palpation periumbilically, normo-active bowel sounds, no masses, no rebound or guarding. UPPER EXTREMITIES: upper extremities are grossly normal. LOWER EXTREMITIES: No pitting edema. NEURO EXAM: Normal sensorium, cranial nerves II-XII grossly intact, normal speech, no gross weakness of arms, no gross weakness of legs. MEDICAL DECISION MAKING: Patient is an 87-year-old female who presents to the ER for abdominal pain. IV was established blood was obtained. Labs show mild leukocytosis 12,000. No significant anemia. BMP with a creatinine of 2.39 consistent with previous. Hyponatremia at 122. Bilirubin LFTs was unremarkable. Troponin was negative. Lipase was normal. UA was clean. CT of the chest abdomen pelvis shows pleural effusion with CHF. Patient was given Lasix. Initial EKG showed a sinus bradycardia and repeat suggestive of junctional rhythm. Discussed the case with Jl Echols for further evaluation management and admission. Discussed with Dr. Mayo for possible placement in the ICU he recommends currently that she does not need to be placed in the unit. Discussed the case with Dr. Batista from cardiology who recommended consulting Dr. Lockhart for possible temporary pacemaker. Discussed with Dr. Lockhart and as patient is currently hemodynamically stable with appropriate blood pressures in the 140s to 160s we will hold on temporary pacer. If the patient drops her pressures and becomes u nstable in any way he recommends calling him and they will immediately place a temporary pacemaker. Patient initially was on 15 L and was titrated down to 6 L. She is feeling better. Triage Nursing notes reviewed. Limited review of prior medical records performed Vital Signs: reviewed and remarkable for no significant abnormalities Differential diagnosis: Differential diagnoses includes but is not limited to gastritis, peptic ulcer disease, GERD, gallbladder disease, pancreatitis, small bowel obstruction, appendicitis, diverticulitis, hernia, urinary tract infection, torsion, perforation, trauma, infectious. ER treatment provided: See below Diagnostics interpreted by me include EKG and cardiac monitoring as listed below: -Cardiac Monitoring: An order was placed for continuous cardiac monitoring. The monitor shows a rate of 50 with sinus rhythm. -ECG: Sinus bradycardia rate of 40 Normal axis No PVCs Septal Q waves QTc 466 EKG #2 Junctional rhythm rate of 34 Wide-complex QRS Left bundle branch block Left axis Inferior Q waves QTc 419 -Laboratory studies:Interpreted by me as stated above in MDM and shown below. Imaging studies: Xrays: As interpreted by me: Portable AP upright 1 view the chest shows no focal infiltrate CTs show: CT of the chest abdomen pelvis showed pleural effusions with pulmonary edema Consultation(s): As described in [facility] Procedures:none Critical Care: I have personally spent 80 minutes of critical care time in the direct management of this patient. This includes bedside care, interpretation of diagnostic studies, and testing, discussion with consultants, patient, and family members, and other required patient management activities. This 80 minutes is in excess of all separately billable procedures. Past Med/Surg History Medical History (Updated 04/07/23 @ 19:30 by Zack Rawls DO) Chronic low back pain CKD (chronic kidney disease) CKD (chronic kidney disease) stage 4, GFR 15-29 ml/min Diabetes mellitus HLD (hyperlipidemia) HTN (hypertension) Hyponatremia Influenza Osteoarthritis of back Vitamin D deficiency Family History (Updated 04/18/23 @ 11:21 by AURORA Das) Mother Ovarian cancer Father Mouth cancer Social History (Updated 12/08/22 @ 11:22 by AURORA Das) Smoking Status: Former smoker Tobacco Type: Cigarettes Second Hand Exposure: No; Do You Dip or Chew Tobacco: No; Hx Alcohol Use: No Hx Substance Use: No Preferred Language: Georgian Communication Ability: Effective Visual Impairment: No Limitations Hearing Ability: Normal Bookkeeping 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 Required: No Beliefs That Will Affect Care: None marital status: / Current Living Situation: Family Current Living Situation Comment: SON &daughter in-law current occupational status: retired Feels Safe at Home: Yes Childhood Exposure to Second-Hand Smoke: No Assistive Devices: Glasses Allergies Allergies Allergy/AdvReac Type Severity Reaction Status Date / Time Penicillins Allergy Unknown Hives Verified 04/07/23 17:46 Home Meds Home Medications Medication Instructions Recorded Confirmed amlodipine 5 mg tablet 5 mg PO DAILY 01/08/22 04/07/23 rosuvastatin 10 mg tablet 10 mg PO HS 01/08/22 04/07/23 sotalol 80 mg tablet (Sotalol AF) 80 mg PO BID 01/08/22 04/07/23 telmisartan 80 mg tablet 80 mg PO DAILY 01/08/22 04/07/23 lancets 12/08/22 04/07/23 levothyroxine 88 mcg tablet 88 mcg PO DAILY 04/07/23 04/07/23 Previous Rx's Medication Instructions Recorded aspirin 81 mg capsule 81 mg PO DAILY #30 caps 12/08/22 loratadine 10 mg capsule 10 mg PO DAILY PRN allergy 12/08/22 symptoms #30 caps sodium bicarbonate 325 mg tablet 325 mg PO BID PRN stomach upset #1 12/08/22 tab fesoterodine 4 mg tablet,extended 4 mg PO DAILY 90 days #90 tabs 03/19/23 release 24 hr (Toviaz) tramadol 50 mg tablet 50 mg PO Q6H PRN mod-severe pain 03/19/23 25 days #100 tabs nateglinide 60 mg tablet 60 mg PO AC #90 tabs 03/29/23 Results & Data (ED) Vital Signs Vital Signs - 24 hr 04/07/23 13:50 04/07/23 14:23 04/07/23 14:33 Temperature 36.6 C Temperature Source Oral Pulse Rate 49 L 48 L Pulse Rate [Apical] 48 L Pulse Rate from SpO2 Sensor Respiratory Rate 20 16 Respiratory Effort / Characteristics Non-Labored Spontaneous Respiratory Depth Normal Respiratory Pattern Regular Blood Pressure 158/75 H Blood Pressure [Left Arm] 150/84 H Blood Pressure Mean 102 Blood Pressure Mean [Left Arm] 106 Pulse Oximetry 94 88 L Oxygen Delivery Method Room Air Room Air Oxygen Flow Rate Sepsis Recent Fever Within 48 Hours No Sepsis New/Unexplained Change in Mental Status N/A Sepsis Action Taken by Nursing No Action Required 04/07/23 14:45 04/07/23 14:50 04/07/23 14:47 Temperature Temperature Source Pulse Rate Pulse Rate [Apical] Pulse Rate from SpO2 Sensor Respiratory Rate Respiratory Effort / Characteristics Respiratory Depth Respiratory Pattern Blood Pressure Blood Pressure [Left Arm] Blood Pressure Mean Blood Pressure Mean [Left Arm] Pulse Oximetry 80 L 87 L 84 L Oxygen Delivery Method Nasal Cannula Oxymask Nasal Cannula Oxygen Flow Rate 3 10 6 Sepsis Recent Fever Within 48 Hours Sepsis New/Unexplained Change in Mental Status Sepsis Action Taken by Nursing 04/07/23 14:53 04/07/23 14:24 04/07/23 14:30 Temperature Temperature Source Pulse Rate 47 L 49 L Pulse Rate [Apical] 46 L Pulse Rate from SpO2 Sensor 47 L 49 L Respiratory Rate 15 23 22 Respiratory Effort / Characteristics Spontaneous Respiratory Depth Respiratory Pattern Regular Blood Pressure Blood Pressure [Left Arm] 168/106 H Blood Pressure Mean Blood Pressure Mean [Left Arm] 126 Pulse Oximetry 96 94 90 Oxygen Delivery Method Non-rebreather Oxygen Flow Rate 15 Sepsis Recent Fever Within 48 Hours Sepsis New/Unexplained Change in Mental Status Sepsis Action Taken by Nursing 04/07/23 14:40 04/07/23 14:50 04/07/23 14:52 Temperature Temperature Source Pulse Rate 48 L 46 L Pulse Rate [Apical] Pulse Rate from SpO2 Sensor 48 L 47 L Respiratory Rate 21 28 H Respiratory Effort / Characteristics Respiratory Depth Respiratory Pattern Blood Pressure 168/106 H Blood Pressure [Left Arm] Blood Pressure Mean 128 Blood Pressure Mean [Left Arm] Pulse Oximetry 84 L 91 Oxygen Delivery Method Oxygen Flow Rate Sepsis Recent Fever Within 48 Hours Sepsis New/Unexplained Change in Mental Status Sepsis Action Taken by Nursing 04/07/23 14:52 04/07/23 15:00 04/07/23 15:00 Temperature Temperature Source Pulse Rate 47 L 45 L Pulse Rate [Apical] Pulse Rate from SpO2 Sensor 48 L 46 L Respiratory Rate 24 26 H Respiratory Effort / Characteristics Respiratory Depth Respiratory Pattern Blood Pressure 161/76 H Blood Pressure [Left Arm] Blood Pressure Mean 128 Blood Pressure Mean [Left Arm] Pulse Oximetry 93 98 Oxygen Delivery Method Oxygen Flow Rate Sepsis Recent Fever Within 48 Hours Sepsis New/Unexplained Change in Mental Status Sepsis Action Taken by Nursing 04/07/23 15:10 04/07/23 15:20 04/07/23 15:30 Temperature Temperature Source Pulse Rate 45 L 45 L 47 L Pulse Rate [Apical] Pulse Rate from SpO2 Sensor 45 L 46 L 47 L Respiratory Rate 19 43 H 19 Respiratory Effort / Characteristics Respiratory Depth Respiratory Pattern Blood Pressure Blood Pressure [Left Arm] Blood Pressure Mean Blood Pressure Mean [Left Arm] Pulse Oximetry 98 98 99 Oxygen Delivery Method Oxygen Flow Rate Sepsis Recent Fever Within 48 Hours Sepsis New/Unexplained Change in Mental Status Sepsis Action Taken by Nursing 04/07/23 15:31 04/07/23 15:31 04/07/23 15:40 Temperature Temperature Source Pulse Rate 44 L 44 L Pulse Rate [Apical] Pulse Rate from SpO2 Sensor 45 L 45 L Respiratory Rate 15 23 Respiratory Effort / Characteristics Respiratory Depth Respiratory Pattern Blood Pressure 184/110 H Blood Pressure [Left Arm] Blood Pressure Mean 147 Blood Pressure Mean [Left Arm] Pulse Oximetry 98 98 Oxygen Delivery Method Oxygen Flow Rate Sepsis Recent Fever Within 48 Hours Sepsis New/Unexplained Change in Mental Status Sepsis Action Taken by Nursing 04/07/23 15:50 04/07/23 16:00 04/07/23 16:00 Temperature Temperature Source Pulse Rate 45 L 44 L Pulse Rate [Apical] Pulse Rate from SpO2 Sensor 47 L 45 L Respiratory Rate 25 H 26 H Respiratory Effort / Characteristics Respiratory Depth Respiratory Pattern Blood Pressure 167/88 H Blood Pressure [Left Arm] Blood Pressure Mean 135 Blood Pressure Mean [Left Arm] Pulse Oximetry 97 97 Oxygen Delivery Method Oxygen Flow Rate Sepsis Recent Fever Within 48 Hours Sepsis New/Unexplained Change in Mental Status Sepsis Action Taken by Nursing 04/07/23 16:29 04/07/23 16:30 04/07/23 16:32 Temperature Temperature Source Pulse Rate 46 L 44 L 45 L Pulse Rate [Apical] Pulse Rate from SpO2 Sensor Respiratory Rate 22 21 22 Respiratory Effort / Characteristics Respiratory Depth Respiratory Pattern Blood Pressure Blood Pressure [Left Arm] Blood Pressure Mean Blood Pressure Mean [Left Arm] Pulse Oximetry 99 Oxygen Delivery Method Oxygen Flow Rate Sepsis Recent Fever Within 48 Hours Sepsis New/Unexplained Change in Mental Status Sepsis Action Taken by Nursing 04/07/23 16:32 04/07/23 16:40 04/07/23 16:50 Temperature Temperature Source Pulse Rate 39 L 35 L Pulse Rate [Apical] Pulse Rate from SpO2 Sensor 39 L 35 L Respiratory Rate 21 21 Respiratory Effort / Characteristics Respiratory Depth Respiratory Pattern Blood Pressure 162/73 H Blood Pressure [Left Arm] Blood Pressure Mean 118 Blood Pressure Mean [Left Arm] Pulse Oximetry 100 100 Oxygen Delivery Method Oxygen Flow Rate Sepsis Recent Fever Within 48 Hours Sepsis New/Unexplained Change in Mental Status Sepsis Action Taken by Nursing 04/07/23 17:00 04/07/23 17:02 04/07/23 17:02 Temperature Temperature Source Pulse Rate 34 L 35 L Pulse Rate [Apical] Pulse Rate from SpO2 Sensor 34 L 35 L Respiratory Rate 22 22 Respiratory Effort / Characteristics Respiratory Depth Respiratory Pattern Blood Pressure 177/75 H Blood Pressure [Left Arm] Blood Pressure Mean 123 Blood Pressure Mean [Left Arm] Pulse Oximetry 100 99 Oxygen Delivery Method Oxygen Flow Rate Sepsis Recent Fever Within 48 Hours Sepsis New/Unexplained Change in Mental Status Sepsis Action Taken by Nursing 04/07/23 17:10 04/07/23 17:20 04/07/23 17:30 Temperature Temperature Source Pulse Rate 36 L 36 L 35 L Pulse Rate [Apical] Pulse Rate from SpO2 Sensor 34 L 36 L 35 L Respiratory Rate 21 18 14 Respiratory Effort / Characteristics Respiratory Depth Respiratory Pattern Blood Pressure Blood Pressure [Left Arm] Blood Pressure Mean Blood Pressure Mean [Left Arm] Pulse Oximetry 100 95 93 Oxygen Delivery Method Oxygen Flow Rate Sepsis Recent Fever Within 48 Hours Sepsis New/Unexplained Change in Mental Status Sepsis Action Taken by Nursing 04/07/23 17:31 04/07/23 17:31 04/07/23 17:40 Temperature Temperature Source Pulse Rate 35 L 34 L Pulse Rate [Apical] Pulse Rate from SpO2 Sensor 35 L 33 L Respiratory Rate 16 14 Respiratory Effort / Characteristics Respiratory Depth Respiratory Pattern Blood Pressure 151/81 H Blood Pressure [Left Arm] Blood Pressure Mean 121 Blood Pressure Mean [Left Arm] Pulse Oximetry 93 93 Oxygen Delivery Method Oxygen Flow Rate Sepsis Recent Fever Within 48 Hours Sepsis New/Unexplained Change in Mental Status Sepsis Action Taken by Nursing 04/07/23 18:13 04/07/23 17:40 04/07/23 17:50 Temperature Temperature Source Pulse Rate 35 L 40 L Pulse Rate [Apical] Pulse Rate from SpO2 Sensor 33 L Respiratory Rate 16 Respiratory Effort / Characteristics Respiratory Depth Respiratory Pattern Blood Pressure 159/78 H Blood Pressure [Left Arm] Blood Pressure Mean 135 Blood Pressure Mean [Left Arm] Pulse Oximetry 93 Oxygen Delivery Method Oxygen Flow Rate Sepsis Recent Fever Within 48 Hours Sepsis New/Unexplained Change in Mental Status Sepsis Action Taken by Nursing 04/07/23 17:51 04/07/23 17:51 04/07/23 18:00 Temperature Temperature Source Pulse Rate 34 L Pulse Rate [Apical] Pulse Rate from SpO2 Sensor 34 L Respiratory Rate 23 Respiratory Effort / Characteristics Respiratory Depth Respiratory Pattern Blood Pressure 164/62 H 171/75 H Blood Pressure [Left Arm] Blood Pressure Mean 109 137 Blood Pressure Mean [Left Arm] Pulse Oximetry 93 Oxygen Delivery Method Oxygen Flow Rate Sepsis Recent Fever Within 48 Hours Sepsis New/Unexplained Change in Mental Status Sepsis Action Taken by Nursing 04/07/23 18:00 04/07/23 18:10 04/07/23 18:11 Temperature Temperature Source Pulse Rate 34 L 33 L 33 L Pulse Rate [Apical] Pulse Rate from SpO2 Sensor 34 L 33 L 33 L Respiratory Rate 9 L 17 16 Respiratory Effort / Characteristics Respiratory Depth Respiratory Pattern Blood Pressure Blood Pressure [Left Arm] Blood Pressure Mean Blood Pressure Mean [Left Arm] Pulse Oximetry 94 94 93 Oxygen Delivery Method Oxygen Flow Rate Sepsis Recent Fever Within 48 Hours Sepsis New/Unexplained Change in Mental Status Sepsis Action Taken by Nursing 04/07/23 18:11 04/07/23 18:20 04/07/23 18:21 Temperature Temperature Source Pulse Rate 36 L Pulse Rate [Apical] Pulse Rate from SpO2 Sensor 33 L Respiratory Rate 15 Respiratory Effort / Characteristics Respiratory Depth Respiratory Pattern Blood Pressure 165/87 H 161/61 H Blood Pressure [Left Arm] Blood Pressure Mean 140 106 Blood Pressure Mean [Left Arm] Pulse Oximetry 93 Oxygen Delivery Method Oxygen Flow Rate Sepsis Recent Fever Within 48 Hours Sepsis New/Unexplained Change in Mental Status Sepsis Action Taken by Nursing 04/07/23 18:21 Temperature Temperature Source Pulse Rate 33 L Pulse Rate [Apical] Pulse Rate from SpO2 Sensor 33 L Respiratory Rate 21 Respiratory Effort / Characteristics Respiratory Depth Respiratory Pattern Blood Pressure Blood Pressure [Left Arm] Blood Pressure Mean Blood Pressure Mean [Left Arm] Pulse Oximetry 92 Oxygen Delivery Method Oxygen Flow Rate Sepsis Recent Fever Within 48 Hours Sepsis New/Unexplained Change in Mental Status Sepsis Action Taken by Nursing Laboratory Data 04/07/23 14:31 04/07/23 14:31 Lab Results 04/07/23 04/07/23 04/07/23 Range/Units 14:31 14:31 14:41 WBC 12.18 H (4.8-10.8) K/ul RBC 4.29 (4.20-5.40) M/uL Hgb 12.6 (12.0-16.0) g/dl Hct 36.8 L (37.0-47.0) % MCV 85.8 (80.0-100.0) fL MCH 29.4 (25.0-34.0) pg MCHC 34.2 (32.0-36.0) g/dL RDW Std Deviation 41.9 (36.4-46.3) fL RDW Coeff of Jeremy 13.3 (11.5-14.5) % Plt Count 184 (130-400) K/uL MPV 10.4 (9.4-12.4) fL Immature Gran % (Auto) 0.5 % Neut % (Auto) 85.9 % Lymph % (Auto) 8.6 % [place] % (Auto) 3.9 % Eos % (Auto) 0.8 % Baso % (Auto) 0.3 % Neut # (Auto) 10.45 H (1.40-6.50) K/uL Lymph # (Auto) 1.05 L (1.2-3.4) K/uL [place] # (Auto) 0.48 (0.11-0.59) K/uL Eos # (Auto) 0.10 (0-0.50) K/uL Baso # (Auto) 0.04 (0-0.2) K/uL Immature Gran # (Auto) 0.06 (0.01-0.20) K/uL Sodium 122 L (136-145) mmol/L Potassium 4.9 (3.5-5.1) mmol/L Chloride 93 L (98-107) mmol/L Carbon Dioxide 23 (21-32) mmol/L Anion Gap 6 (3-11) BUN 24 H (6-23) mg/dl Creatinine 2.39 H (0.6-1.2) mg/dl Est Cr Clr Drug Dosing 16.2 ml/min Est GFR ( Amer) 20.6 ml/min Est GFR (Non-Af Amer) 17.8 ml/min BUN/Creatinine Ratio 10.0 (10-20) Glucose 169 H (70-99(Fasting)) mg/dl Osmolality 271 L (280-300) mOsm/kg Calcium 8.4 L (8.6-10.3) mg/dl Total Bilirubin 0.7 (0.2-1.0) mg/dl AST 14 (13-39) U/L ALT 13 (7-52) U/L Alkaline Phosphatase 92 (34-104) U/L Troponin I High Sens 4.8 (0-14) pg/ml Total Protein 7.1 (6.0-8.3) gm/dl Albumin 4.0 (3.4-5.0) gm/dl Globulin 3.1 (2.5-4.0) gm/dl Albumin/Globulin Ratio 1.3 (0.9-2) Lipase 9 L (11-82) U/L Urine Color Urine Appearance (Clear) Urine pH (4.5-7.5) Ur Specific [place] (1.000-1.030) Urine Protein (Negative) Urine Glucose (UA) (Negative) Urine Ketones (Negative) Urine Blood (Negative) Urine Nitrite (Negative) Urine Bilirubin (Negative) Urine Urobilinogen (Negative) Ur Leukocyte Esterase (Negative) Urine WBC (Auto) (0-5) /hpf Urine RBC (Auto) (0-4) /hpf U Hyaline Cast (Auto) (0-5) /lpf U Epithel Cells (Auto) (0-5) /lpf Urine Bacteria (Auto) (Negative) Urine Osmolality (500-800) mOsm/kg Ur Random Sodium mmol/L 04/07/23 04/07/23 04/07/23 Range/Units 18:19 18:19 18:19 WBC (4.8-10.8) K/ul RBC (4.20-5.40) M/uL Hgb (12.0-16.0) g/dl Hct (37.0-47.0) % MCV (80.0-100.0) fL MCH (25.0-34.0) pg MCHC (32.0-36.0) g/dL RDW Std Deviation (36.4-46.3) fL RDW Coeff of Jeremy (11.5-14.5) % Plt Count (130-400) K/uL MPV (9.4-12.4) fL Immature Gran % (Auto) % Neut % (Auto) % Lymph % (Auto) % [place] % (Auto) % Eos % (Auto) % Baso % (Auto) % Neut # (Auto) (1.40-6.50) K/uL Lymph # (Auto) (1.2-3.4) K/uL [place] # (Auto) (0.11-0.59) K/uL Eos # (Auto) (0-0.50) K/uL Baso # (Auto) (0-0.2) K/uL Immature Gran # (Auto) (0.01-0.20) K/uL Sodium (136-145) mmol/L Potassium (3.5-5.1) mmol/L Chloride (98-107) mmol/L Carbon Dioxide (21-32) mmol/L Anion Gap (3-11) BUN (6-23) mg/dl Creatinine (0.6-1.2) mg/dl Est Cr Clr Drug Dosing ml/min Est GFR ( Amer) ml/min Est GFR (Non-Af Amer) ml/min BUN/Creatinine Ratio (10-20) Glucose (70-99(Fasting)) mg/dl Osmolality (280-300) mOsm/kg Calcium (8.6-10.3) mg/dl Total Bilirubin (0.2-1.0) mg/dl AST (13-39) U/L ALT (7-52) U/L Alkaline Phosphatase (34-104) U/L Troponin I High Sens (0-14) pg/ml Total Protein (6.0-8.3) gm/dl Albumin (3.4-5.0) gm/dl Globulin (2.5-4.0) gm/dl Albumin/Globulin Ratio (0.9-2) Lipase (11-82) U/L Urine Color Yellow Urine Appearance Clear (Clear) Urine pH 6.5 (4.5-7.5) Ur Specific [place] 1.011 (1.000-1.030) Urine Protein 1+ H (Negative) Urine Glucose (UA) Negative (Negative) Urine Ketones Negative (Negative) Urine Blood Negative (Negative) Urine Nitrite Negative (Negative) Urine Bilirubin Negative (Negative) Urine Urobilinogen Negative (Negative) Ur Leukocyte Esterase Negative (Negative) Urine WBC (Auto) 0 (0-5) /hpf Urine RBC (Auto) 0-4 (0-4) /hpf U Hyaline Cast (Auto) 0 (0-5) /lpf U Epithel Cells (Auto) 10-20 H (0-5) /lpf Urine Bacteria (Auto) Negative (Negative) Urine Osmolality 317 L (500-800) mOsm/kg Ur Random Sodium 39 mmol/L Administered Medications Nitroglycerin (Nitroglycerin 2% Ointment 30gm Tube) 0.5 inch EXT Q6H ERIN Stop: 05/07/23 17:29 Last Admin: 04/07/23 18:03 Dose: 0.5 inch Documented By: ACC Discontinued Medications Furosemide (Furosemide Inj 20 Mg/2 Ml Vial) 20 mg IV NOW STA Stop: 04/07/23 16:59 Last Admin: 04/07/23 17:26 Dose: 20 mg Documented By: ACC Furosemide (Furosemide 40 Mg/4 Ml Vial) Confirm Administered Dose 40 mg IV .STK- MED ONE Stop: 04/07/23 17:21 Last Admin: 04/07/23 17:26 Dose: Not Given Documented By: ACC Sodium Chloride (Nss) 500 mls @ 999 mls/hr IV .Q31M ONE Stop: 04/07/23 14:23 Last Admin: 04/07/23 14:08 Dose: 999 mls/hr Documented By: KV Ondansetron HCl (Ondansetron Inj 2 Mg/Ml 2 Ml Vial) 4 mg IV NOW STA Stop: 04/07/23 13:54 Last Admin: 04/07/23 14:08 Dose: 4 mg Documented By: KV Imaging Data Radiologist's Impression: Chest X-Ray 04/07/23 14:53 XR chest 1V portable CLINICAL HISTORY: hypoxic TECHNIQUE: Single frontal radiograph of the chest was obtained. Comparison: None available at the time of this dictation. FINDINGS: No lines and tubes are seen. Cardiomegaly is noted. Reticular interstitial opacities are seen. No evidence of pleural effusion or pneumothorax. IMPRESSION: No acute chest disease. ACT 112: Negative or not required by law. Electronically signed by: Oscar Almazan M.D. 04/07/2023 3:18 PM Abdomen/Pelvis CT 04/07/23 15:45 CT abd pelvis wo con CLINICAL HISTORY: abd pain TECHNIQUE: Helical axial images of the abdomen and pelvis were obtained. Automated dose lowering techniques and/or adjustment according to patient size were utilized for this exam. This exam was performed without intravenous contrast. COMPARISON: None available at the time of this dictation. FINDINGS: Lower chest: Bibasilar atelectasis versus scarring is seen. Small bilateral pleural effusions are seen with underlying atelectasis. Liver: Unremarkable. No focal lesions are seen. Gallbladder and biliary tree: No calcified gallstones. Normal caliber wall. No intra- or extrahepatic biliary ductal dilation. Pancreas: Unremarkable, no focal lesions. Spleen: Unremarkable. Adrenals: Unremarkable. Kidneys and ureters: Perinephric stranding is noted bilaterally. Bladder: Unremarkable. Reproductive organs: Unremarkable. Bowel: Small stool burden is seen. No evidence of obstruction. Lymph nodes Retroperitoneal: Unremarkable. Pelvic: Unremarkable. Mesenteric: Unremarkable. Peritoneum: Normal. Vessels: Atherosclerotic calcifications are seen. Abdominal wall: Unremarkable. Bones: Degenerative changes in the visualized spine. IMPRESSION: No acute abnormalities. No evidence of obstruction, there is a small stool burden. ACT 112: Negative or not required by law. Electronically signed by: Oscar Almazan M.D. 04/07/2023 4:[address] 04/07/23 16:17 CT chest diagnostic wo con CT DOSE: 2192.00 mGy.cm HISTORY: Nausea. TECHNIQUE: Multiaxial CT images of the chest were performed without contrast. A dose lowering technique was utilized adhering to the principles of ALARA. COMPARISON: None. FINDINGS: There is respiratory motion artifact. Mild diffuse bronchial wall thickening. No pneumothorax. There are small bilateral pleural effusions. Interlobular septal thickening consistent with mild pulmonary edema. There is a punctate calcified granuloma within the right upper lobe. A few additional small scattered patchy groundglass and nodular airspace opacities are nonspecific but may be due to the alveolar component of the pulmonary edema. Patchy densities within the lungs posteriorly favor dependent change/atelectasis from the pleural effusions. There are few additional scattered punctate calcified granulomas w ithin the lungs. No acute fractures within the chest. Limited views of the upper abdomen demonstrate a normal liver, spleen, and adrenal glands. Calcified plaque within the normal caliber thoracic aorta. The heart is normal in size. No pericardial effusion. Moderate coronary artery calcifications are noted. Normal caliber esophagus. No mediastinal or hilar lymphadenopathy. IMPRESSION: 1. Pulmonary edema with small bilateral pleural effusions. 2. Patchy densities within the lower lobes posteriorly favor atelectasis/dependent change from the pleural effusions. A pneumonia is considered less likely but not entirely excluded. 3. Mild diffuse bronchial wall thickening. 4. A few scattered small patchy groundglass and nodular airspace opacities are nonspecific but may be due to the alveolar component of the pulmonary edema. ACT 112: Negative or not required by law. Electronically signed by: Nilo Mclean M.D. 04/07/2023 4:50 PM Discharge Plan Visit Data Chief Complaint: Illness ED Provider: Zack Rawls Discharge Problem: Respiratory failure with hypoxia, Hyponatremia, CKD (chronic kidney disease), Junctional rhythm Forms Stand Alone Forms: [facility] [employer] Prescriptions Prescriptions: No Action fesoterodine [Toviaz] 4 mg tablet extended release 24 hr 4 mg PO DAILY 90 Days Qty: 90 0RF tramadol 50 mg tablet 50 mg PO Q6H PRN (Reason: mod-severe pain) 25 Days Qty: 100 0RF nateglinide 60 mg tablet 60 mg PO AC Qty: 90 0RF aspirin 81 mg capsule 81 mg PO DAILY Qty: 30 2RF loratadine 10 mg capsule 10 mg PO DAILY PRN (Reason: allergy symptoms) Qty: 30 0RF (DME) lancets Misc See Rx Instructions .Route Rx Instructions: As directed sodium bicarbonate 325 mg tablet 325 mg PO BID PRN (Reason: stomach upset) Qty: 1 0RF sotalol [Sotalol AF] 80 mg tablet 80 mg PO BID amlodipine 5 mg tablet 5 mg PO DAILY telmisartan 80 mg tablet 80 mg PO DAILY rosuvastatin 10 mg tablet 10 mg PO HS levothyroxine 88 mcg tablet 88 mcg PO DAILY Referrals Referrals: Calin Tobias DO [Primary Care Provider] -
[2023-04-07 15:17] LABS: Basophils # (auto) 0.04 K/uL (0-0.2); Basophils % (auto) 0.3 %; Eosinophils % (auto) 0.8 %; Hematocrit (blood only) 36.8 % (37.0-47.0); Hemoglobin 12.6 g/dl (12.0-16.0); Immature Granulocytes # (auto) 0.06 K/uL (0.01-0.20); Immature Granulocytes % (auto) 0.5 %; Lymphocytes # (auto) 1.05 K/uL (1.2-3.4); Lymphocytes % (auto) 8.6 %; Mean Corpuscular Hemoglobin 29.4 pg (25.0-34.0); Mean Corpuscular Hgb Conc 34.2 g/dL (32.0-36.0); Mean Corpuscular Volume 85.8 fL (80.0-100.0); Mean Platelet Volume 10.4 fL (9.4-12.4); Monocytes # (auto) 0.48 K/uL (0.11-0.59); Monocytes % (auto) 3.9 %; Neutrophils # (auto) 10.45 K/uL (1.40-6.50); Neutrophils % (auto) 85.9 %; Platelet Count 184 K/uL (130-400); RDW Coefficient of Variation 13.3 % (11.5-14.5); RDW Standard Deviation 41.9 fL (36.4-46.3); Red Blood Count 4.29 M/uL (4.20-5.40); White Blood Count 12.18 K/ul (4.8-10.8)
--- NOTE | 2023-04-07 15:20 | XRay Report ---
XR chest 1V portable CLINICAL HISTORY: hypoxic TECHNIQUE: Single frontal radiograph of the chest was obtained. Comparison: None available at the time of this dictation. FINDINGS: No lines and tubes are seen. Cardiomegaly is noted. Reticular interstitial opacities are seen. No gregg dence of pleural effusion or pneumothorax. IMPRESSION: No acute chest disease. ACT 112: Negative or not required by law. Electronically signed by: Oscar Almazan M.D. 04/07/2023 3:18 PM
[2023-04-07 15:33] LABS: Albumin Globulin Ratio 1.3 (0.9-2); Bilirubin,Total 0.7 mg/dl (0.2-1.0); Calcium 8.4 mg/dl (8.6-10.3); Creatinine Clr Calc Pharmacy 16.2 ml/min; Est GFR (African American) 20.6 ml/min; Est GFR (Non-African American) 17.8 ml/min; Globulin 3.1 gm/dl (2.5-4.0); Potassium 4.9 mmol/L (3.5-5.1); Total Protein 7.1 gm/dl (6.0-8.3)
[2023-04-07 15:38] LABS: Troponin I High Sensitivity 4.8 pg/ml (0-14)
--- NOTE | 2023-04-07 15:58 | Electrocardiogram Report ---
Test Reason : Blood Pressure : / mmHG Vent. Rate : 048 BPM Atrial Rate : 000 BPM P-R Int : 000 ms QRS Dur : 136 ms QT Int : 522 ms P-R-T Axes : 000 073 007 degrees QTc Int : 466 ms Sinus bradycardia Left bundle branch block Abnormal ECG When compared with ECG of 30-MAR-2022 18:07, Vent. rate has decreased BY 23 BPM Confirmed by Yahir Craig ([id number]) on 04/07/2023 3:58:15 PM Referred By: REFERRED SELF Confirmed By:Yahir Craig
--- NOTE | 2023-04-07 16:51 | CT Scan Report ---
CT chest diagnostic wo con CT DOSE: 2192.00 mGy.cm HISTORY: Nausea. TECHNIQUE: Multiaxial CT images of the chest were performed without contrast. A dose lowering techni que was utilized adhering to the principles of ALARA. COMPARISON: None. FINDINGS: There is respiratory motion artifact. Mild diffuse bronchial wall thickening. No pneumothor ax. There are small bilateral pleural effusions. Interlobular septal thickening consistent with mild pulmonary edema. There is a punctate calcified granuloma within the right upper lobe. A few additiona l small scattered patchy groundglass and nodular airspace opacities are nonspecific but may be due to the alveolar component of the pulmonary edema. Patchy densities within the lungs posteriorly favor d ependent change/atelectasis from the pleural effusions. There are few additional scattered punctate c alcified granulomas within the lungs. No acute fractures within the chest. Limited views of the upper abdomen demonstrate a normal liver, spleen, and adrenal glands. Calcified plaque within the normal c aliber thoracic aorta. The heart is normal in size. No pericardial effusion. Moderate coronary artery calcifications are noted. Normal caliber esophagus. No mediastinal or hilar lymphadenopathy. IMPRESSION: 1. Pulmonary edema with small bilateral pleural effusions. 2. Patchy densities within the lower lobes posteriorly favor atelectasis/dependent change from the pl eural effusions. A pneumonia is considered less likely but not entirely excluded. 3. Mild diffuse bronchial wall thickening. 4. A few scattered small patchy groundglass and nodular airspace opacities are nonspecific but may be due to the alveolar component of the pulmonary edema. ACT 112: Negative or not required by law. Electronically signed by: Nilo Mclean M.D. 04/07/2023 4:50 PM
--- NOTE | 2023-04-07 16:55 | CT Scan Report ---
CT abd pelvis wo con CLINICAL HISTORY: abd pain TECHNIQUE: Helical axial images of the abdomen and pelvis were obtained. Automated dose lowering tech niques and/or adjustment according to patient size were utilized for this exam. This exam was perfor med without intravenous contrast. COMPARISON: None available at the time of this dictation. FINDINGS: Lower chest: Bibasilar atelectasis versus scarring is seen. Small bilateral pleural effusions are se en with underlying atelectasis. Liver: Unremarkable. No focal lesions are seen. Gallbladder and biliary tree: No calcified gallstones. Normal caliber wall. No intra- or extrahepatic biliary ductal dilation. Pancreas: Unremarkable, no focal lesions. Spleen: Unremarkable. Adrenals: Unremarkable. Kidneys and ureters: Perinephric stranding is noted bilaterally. Bladder: Unremarkable. Reproductive organs: Unremarkable. Bowel: Small stool burden is seen. No evidence of obstruction. Lymph nodes Retroperitoneal: Unremarkable. Pelvic: Unremarkable. Mesenteric: Unremarkable. Peritoneum: Normal. Vessels: Atherosclerotic calcifications are seen. Abdominal wall: Unremarkable. Bones: Degenerative changes in the visualized spine. IMPRESSION: No acute abnormalities. No evidence of obstruction, there is a small stool burden. ACT 112: Negative or not required by law. Electronically signed by: Oscar Almazan M.D. 04/07/2023 4:54 PM
[2023-04-07] MEDS ORDERED: FUROSEMIDE INJ 20 MG/2 ML VIAL IV STA (16:58)
[2023-04-07] MEDS ORDERED: FUROSEMIDE 40 MG/4 ML VIAL IV ONE ×2 (17:20→21:15)
[2023-04-07] MEDS ORDERED: NITROGLYCERIN 2% OINTMENT 30GM TUBE EXT SCH (17:30)
[2023-04-07] MEDS ORDERED: ATROPINE SULFATE 0.1 MG/ML 10ML SYR IV ONE (18:32)
[2023-04-07 18:36] LABS: Appearance Urine Clear (Clear); Bacteria Urine Automated Negative (Negative); Bilirubin Urine Negative (Negative); Blood Urine Negative (Negative); Cast Urine Automated 0 /lpf (0-5); Color Urine Yellow; Glucose Urine UA Negative (Negative); Ketones Urine Negative (Negative); Leukocyte Esterase Urine Negative (Negative); Nitrite Urine Negative (Negative); Protein Urine 1+ (Negative); RBC Urine Automated 0-4 /hpf (0-4); Specific Gravity Urine 1.011 (1.000-1.030); Urobilinogen Urine Negative (Negative); WBC Urine Automated 0 /hpf (0-5); pH Urine 6.5 (4.5-7.5)
--- NOTE | 2023-04-07 19:36 | History & Physical Report ---
Date of Service April 07, 2023 Assessment & Plan (1) Acute respiratory failure with hypoxia: (2) CKD (chronic kidney disease) stage 4, GFR 15-29 ml/min: (3) Junctional rhythm: (4) Vitamin D deficiency: (5) HLD (hyperlipidemia): (6) HTN (hypertension): (7) Diabetes mellitus: (8) Hyponatremia: (9) Chronic low back pain: (10) Pulmonary edema: (11) Aspiration pneumonia: Plan Acute respiratory failure with hypoxia- Likely combination of pulmonary edema and aspiration pneumonia Continue nonrebreather mask for now, may require change to high flow to keep pulse ox target around 92% NPO Pulmonary edema/bradycardia/hypertension- The patient will be admitted to telemetry for serial cardiac enzymes, serial EKG's, cardiac rhythm monitoring and a 2-D echocardiogram with Dopplers. Given Lasix 20 mg IV from the ED. Will give an additional 80mg IV now, then 40mg IV qam pending response. Hold sotalol evening dose, and hold until seen by cardiology in a.m. Hold amlodipine, aspirin, telmisartan while n.p.o. Atropine at bedside, pacer pads on Will consider re-addition of NTP if BP remains elevated as diuresed Cardiology is aware of the patient's present heart rate in the low 30s, and would not pursue any interventions unless blood pressure is no longer maintained appropriately Patient will be admitted to PCU, but ICU is aware of the patient and will except if blood pressure is no longer maintained Diabetes Mellitus- Hold nateglinide Place on Accu-Cheks with NovoLog SSI Aspiration Pneumonia- Start cefepime 2g IV q12h duonebs q2h prn History of Present Illness Chief Complaint: The patient presents to the emergency department with complaint of abdominal discomfort that began 2 days ago, and had 1 episode of nausea and vomiting. Her son reports that her mentation is definitely off, and she has had less interaction and appears more fatigued Primary Care Provider: Calin Tobias, The patient is a 87-year-old female with a past medical history including vitamin D deficiency, CKD stage IV, hyperlipidemia, hypertension, chronic low back pain, diabetes mellitus and hyponatremia. She is brought to emergency department symptoms as noted above. Significant laboratories: WBC 12.18, sodium 122, creatinine 2.39, glucose 169. Allergies Allergy/AdvReac Type Severity Reaction Status Date / Time Penicillins Allergy Unknown Hives Verified 04/07/23 17:46 Home Medications Medication Instructions Recorded Confirmed Type amlodipine 5 mg tablet 5 mg PO DAILY 01/08/22 04/07/23 History rosuvastatin 10 mg tablet 10 mg PO HS 01/08/22 04/07/23 History sotalol 80 mg tablet (Sotalol AF) 80 mg PO BID 01/08/22 04/07/23 History telmisartan 80 mg tablet 80 mg PO DAILY 01/08/22 04/07/23 History aspirin 81 mg capsule 81 mg PO DAILY #30 caps 12/08/22 04/07/23 Rx lancets 12/08/22 04/07/23 History loratadine 10 mg capsule 10 mg PO DAILY PRN allergy 12/08/22 04/07/23 Rx symptoms #30 caps sodium bicarbonate 325 mg tablet 325 mg PO BID PRN stomach upset #1 12/08/22 0 04/07/23 Rx tab fesoterodine 4 mg tablet,extended 4 mg PO DAILY 90 days #90 tabs 03/19/23 04/07/23 Rx release 24 hr (Toviaz) tramadol 50 mg tablet 50 mg PO Q6H PRN mod-severe pain 03/19/23 04/07/23 Rx 25 days #100 tabs nateglinide 60 mg tablet 60 mg PO AC #90 tabs 03/29/23 04/07/23 Rx levothyroxine 88 mcg tablet 88 mcg PO DAILY 04/07/23 04/07/23 History Past Med/Surg History Medical History (Updated 04/07/23 @ 19:32 by Jl Echols MD) Chronic low back pain CKD (chronic kidney disease) CKD (chronic kidney disease) stage 4, GFR 15-29 ml/min Diabetes mellitus HLD (hyperlipidemia) HTN (hypertension) Hyponatremia Influenza Osteoarthritis of back Vitamin D deficiency Family History (Updated 12/08/22 @ 11:21 by AURORA Das) Mother Ovarian cancer Father Mouth cancer Social History (Updated 12/08/22 @ 11:22 by AURORA Das) Smoking Status: Former smoker Tobacco Type: Cigarettes Second Hand Exposure: No; Do You Dip or Chew Tobacco: No; Hx Alcohol Use: No Hx Substance Use: No Preferred Language: Lao Communication Ability: Effective Visual Impairment: No Limitations Hearing Ability: Normal Small Animal Caretaker Required: No Beliefs That Will Affect Care: None marital status: / Current Living Situation: Family Current Living Situation Comment: SON &daughter in-law current occupational status: retired Feels Safe at Home: Yes Childhood Exposure to Second-Hand Smoke: No Assistive Devices: Glasses Review of Systems 2 Review of Systems: Review of systems is limited due to patient's current level responsiveness, it is supplied by her son, who is in attendance in the emergency department Physical Exam Physical Exam: The patient is able to open eyes, but unable to respond to questions, well developed and well nourished, normocephalic and atraumatic, lying in bed and in mild distress. HEENT--PERRL, EOMI, mucous membranes and oropharynx dry. Nonrebreather mask Neck--supple. No JVD. No bruits. Thyroid normal, trachea midline, no adenopathy. Heart--normal S1 and S2. No murmurs, rubs or gallops. Lungs--coarse breath sounds at the bases bilaterally. Mild respiratory distress with accessory muscle use. Abdomen--normal bowel sounds and soft. Nontender. Nondistended Extremities--1+ bilateral pretibial pitting edema Dermatologic--normal skin turgor, normal color, Neurologic--cranial nerves II through XII grossly intact. Rheumatologic--limited exam Psychiatric--opens eyes but unable to respond to questions Results & Data Results & Data Vital Signs (Past 12 Hours) Vital Signs Temp Pulse Pulse Resp BP BP Pulse Ox 04/07/23 18:21 33 L 21 92 04/07/23 18:21 161/61 H 04/07/23 18:20 36 L 15 93 04/07/23 18:11 165/87 H 04/07/23 18:11 33 L 16 93 04/07/23 18:10 33 L 17 94 04/07/23 18:00 34 L 9 L 94 04/07/23 18:00 171/75 H 04/07/23 17:51 164/62 H 04/07/23 17:51 34 L 23 93 04/07/23 17:50 40 L 16 93 04/07/23 17:40 159/78 H 04/07/23 18:13 35 L 04/07/23 17:40 34 L 14 93 04/07/23 17:31 151/81 H 04/07/23 17:31 35 L 16 93 04/07/23 17:30 35 L 14 93 04/07/23 17:20 36 L 18 95 04/07/23 17:10 36 L 21 100 04/07/23 17:02 177/75 H 04/07/23 17:02 35 L 22 99 04/07/23 17:00 34 L 22 100 04/07/23 16:50 35 L 21 100 04/07/23 16:40 39 L 21 100 04/07/23 16:32 162/73 H 04/07/23 16:32 45 L 22 99 04/07/23 16:30 44 L 21 04/07/23 16:29 46 L 22 04/07/23 16:00 44 L 26 H 97 04/07/23 16:00 167/88 H 04/07/23 15:50 45 L 25 H 97 04/07/23 15:40 44 L 23 98 04/07/23 15:31 44 L 15 98 04/07/23 15:31 184/110 H 04/07/23 15:30 47 L 19 99 04/07/23 15:20 45 L 43 H 98 04/07/23 15:10 45 L 19 98 04/07/23 15:00 45 L 26 H 98 04/07/23 15:00 161/76 H 04/07/23 14:52 47 L 24 93 04/07/23 14:52 168/106 H 04/07/23 14:50 46 L 28 H 91 04/07/23 14:40 48 L 21 84 L 04/07/23 14:30 49 L 22 90 04/07/23 14:24 47 L 23 94 04/07/23 14:53 46 L 15 168/106 H 96 04/07/23 14:47 84 L 04/07/23 14:50 87 L 04/07/23 14:45 80 L 04/07/23 14:33 48 L 04/07/23 14:23 48 L 16 150/84 H 88 L 04/07/23 13:50 36.6 C 49 L 20 158/75 H 94 O2 Del Method O2 Flow Rate 04/07/23 18:21 04/07/23 18:21 04/07/23 18:20 04/07/23 18:11 04/07/23 18:11 04/07/23 18:10 04/07/23 18:00 04/07/23 18:00 04/07/23 17:51 04/07/23 17:51 04/07/23 17:50 04/07/23 17:40 04/07/23 18:13 04/07/23 17:40 04/07/23 17:31 04/07/23 17:31 04/07/23 17:30 04/07/23 17:20 04/07/23 17:10 04/07/23 17:02 04/07/23 17:02 04/07/23 17:00 04/07/23 16:50 04/07/23 16:40 04/07/23 16:32 04/07/23 16:32 04/07/23 16:30 04/07/23 16:29 04/07/23 16:00 04/07/23 16:00 04/07/23 15:50 04/07/23 15:40 04/07/23 15:31 04/07/23 15:31 04/07/23 15:30 04/07/23 15:20 04/07/23 15:10 04/07/23 15:00 04/07/23 15:00 04/07/23 14:52 04/07/23 14:52 04/07/23 14:50 04/07/23 14:40 04/07/23 14:30 04/07/23 14:24 04/07/23 14:53 Non-rebreather 15 04/07/23 14:47 Nasal Cannula 6 04/07/23 14:50 Oxymask 10 04/07/23 14:45 Nasal Cannula 3 04/07/23 14:33 04/07/23 14:23 Room Air 04/07/23 13:50 Room Air Laboratory Results Laboratory Results WBC 12.18 K/ul (4.8-10.8) H 04/07/23 14:31 RBC 4.29 M/uL (4.20-5.40) 04/07/23 14:31 Hgb 12.6 g/dl (12.0-16.0) 04/07/23 14:31 Hct 36.8 % (37.0-47.0) L 04/07/23 14: MCV 85.8 fL (80.0-100.0) 04/07/23 14: MCH 29.4 pg (25.0-34.0) 04/07/23 14: MCHC 34.2 g/dL (32.0-36.0) 04/07/23 14: RDW Std Deviation 41.9 fL (36.4-46.3) 04/07/23 14: RDW Coeff of Jeremy 13.3 % (11.5-14.5) 04/07/23 14: Plt Count 184 K/uL (130-400) 04/07/23 14: MPV 10.4 fL (9.4-12.4) 04/07/23 14: Immature Gran % (Auto) 0.5 % 04/07/23 14: Neut % (Auto) 85.9 % 04/07/23 14: Lymph % (Auto) 8.6 % 04/07/23 14: [place] % (Auto) 3.9 % 04/07/23 14: Eos % (Auto) 0.8 % 04/07/23 14: Baso % (Auto) 0.3 % 04/07/23 14: Neut # (Auto) 10.45 K/uL (1.40-6.50) H 04/07/23 14: Lymph # (Auto) 1.05 K/uL (1.2-3.4) L 04/07/23 14: Grayson # (Auto) 0.48 K/uL (0.11-0.59) 04/07/23 14: Eos # (Auto) 0.10 K/uL (0-0.50) 04/07/23 14: Baso # (Auto) 0.04 K/uL (0-0.2) 04/07/23 14: Immature Gran # (Auto) 0.06 K/uL (0.01-0.20) 04/07/23 14: Sodium 122 mmol/L (136-145) L 04/07/23 14: Potassium 4.9 mmol/L (3.5-5.1) 04/07/23 14: Chloride 93 mmol/L (98-107) L 04/07/23 14:31 Carbon Dioxide 23 mmol/L (21-32) 04/07/23 14:31 Anion Gap 6 (3-11) 04/07/23 14:31 BUN 24 mg/dl (6-23) H 04/07/23 14:31 Creatinine 2.39 mg/dl (0.6-1.2) H 04/07/23 14:31 Est Cr Clr Drug Dosing 16.2 ml/min 04/07/23 14:31 Est GFR ( Amer) 20.6 ml/min 04/07/23 14:31 Est GFR (Non-Af Amer) 17.8 ml/min 04/07/23 14:31 BUN/Creatinine Ratio 10.0 (10-20) 04/07/23 14:31 Glucose 169 mg/dl (70-99(Fasting)) H 04/07/23 14:31 Osmolality 271 mOsm/kg (280-300) L 04/07/23 14:41 Calcium 8.4 mg/dl (8.6-10.3) L 04/07/23 14:31 Total Bilirubin 0.7 mg/dl (0.2-1.0) 04/07/23 14:31 AST 14 U/L (13-39) 04/07/23 14:31 ALT 13 U/L (7-52) 04/07/23 14:31 Alkaline Phosphatase 92 U/L (34-104) 04/07/23 14:31 Troponin I High Sens 4.8 pg/ml (0-14) 04/07/23 14:31 Total Protein 7.1 gm/dl (6.0-8.3) 04/07/23 14:31 Albumin 4.0 gm/dl (3.4-5.0) 04/07/23 14:31 Globulin 3.1 gm/dl (2.5-4.0) 04/07/23 14:31 Albumin/Globulin Ratio 1.3 (0.9-2) 04/07/23 14:31 Lipase 9 U/L (11-82) L 04/07/23 14:31 Urine Color Yellow 04/07/23 18:19 Urine Appearance Clear (Clear) 04/07/23 18:19 Urine pH 6.5 (4.5-7.5) 04/07/23 18:19 Ur Specific [place] 1.011 (1.000-1.030) 04/07/23 18:19 Urine Protein 1+ (Negative) H 04/07/23 18:19 Urine Glucose (UA) Negative (Negative) 04/07/23 18:19 Urine Ketones Negative (Negative) 04/07/23 18:19 Urine Blood Negative (Negative) 04/07/23 18:19 Urine Nitrite Negative (Negative) 04/07/23 18:19 Urine Bilirubin Negative (Negative) 04/07/23 18:19 Urine Urobilinogen Negative (Negative) 04/07/23 18:19 Ur Leukocyte Esterase Negative (Negative) 04/07/23 18:19 Urine WBC (Auto) 0 /hpf (0-5) 04/07/23 18:19 Urine RBC (Auto) 0-4 /hpf (0-4) 04/07/23 18:19 U Hyaline Cast (Auto) 0 /lpf (0-5) 04/07/23 18:19 U Epithel Cells (Auto) 10-20 /lpf (0-5) H 04/07/23 18:19 Urine Bacteria (Auto) Negative (Negative) 04/07/23 18:19 Urine Osmolality 317 mOsm/kg (500-800) L 04/07/23 18:19 Ur Random Sodium 39 mmol/L 04/07/23 18:19 Impressions Chest X-Ray 04/07/23 14:53 XR chest 1V portable CLINICAL HISTORY: hypoxic TECHNIQUE: Single frontal radiograph of the chest was obtained. Comparison: None available at the time of this dictation. FINDINGS: No lines and tubes are seen. Cardiomegaly is noted. Reticular interstitial opacities are seen. No evidence of pleural effusion or pneumothorax. IMPRESSION: No acute chest disease. ACT 112: Negative or not required by law. Electronically signed by: Oscar Almazan M.D. 04/07/2023 3:18 PM Abdomen/Pelvis CT 04/07/23 15:45 CT abd pelvis wo con CLINICAL HISTORY: abd pain TECHNIQUE: Helical axial images of the abdomen and pelvis were obtained. Automated dose lowering techniques and/or adjustment according to patient size were utilized for this exam. This exam was performed without intravenous contrast. COMPARISON: None available at the time of this dictation. FINDINGS: Lower chest: Bibasilar atelectasis versus scarring is seen. Small bilateral pleural effusions are seen with underlying atelectasis. Liver: Unremarkable. No focal lesions are seen. Gallbladder and biliary tree: No calcified gallstones. Normal caliber wall. No intra- or extrahepatic biliary ductal dilation. Pancreas: Unremarkable, no focal lesions. Spleen: Unremarkable. Adrenals: Unremarkable. Kidneys and ureters: Perinephric stranding is noted bilaterally. Bladder: Unremarkable. Reproductive organs: Unremarkable. Bowel: Small stool burden is seen. No evidence of obstruction. Lymph nodes Retroperitoneal: Unremarkable. Pelvic: Unremarkable. Mesenteric: Unremarkable. Peritoneum: Normal. Vessels: Atherosclerotic calcifications are seen. Abdominal wall: Unremarkable. Bones: Degenerative changes in the visualized spine. IMPRESSION: No acute abnormalities. No evidence of obstruction, there is a small stool burden. ACT 112: Negative or not required by law. Electronically signed by: Oscar Almazan M.D. 04/07/2023 4:[address] 04/07/23 16:17 CT chest diagnostic wo con CT DOSE: 2192.00 mGy.cm HISTORY: Nausea. TECHNIQUE: Multiaxial CT images of the chest were performed without contrast. A dose lowering technique was utilized adhering to the principles of ALARA. COMPARISON: None. FINDINGS: There is respiratory motion artifact. Mild diffuse bronchial wall thickening. No pneumothorax. There are small bilateral pleural effusions. Interlobular septal thickening consistent with mild pulmonary edema. There is a punctate calcified granuloma within the right upper lobe. A few additional small scattered patchy groundglass and nodular airspace opacities are nonspecific but may be due to the alveolar component of the pulmonary edema. Patchy densities within the lungs posteriorly favor dependent change/atelectasis from the pleural effusions. There are few additional scattered punctate calcified granulomas within the lungs. No acute fractures within the chest. Limited views of the upper abdomen demonstrate a normal liver, spleen, and adrenal glands. Calcified plaque within the normal caliber thoracic aorta. The heart is normal in size. No pericardial effusion. Moderate coronary artery calcifications are noted. Normal caliber esophagus. No mediastinal or hilar lymphadenopathy. IMPRESSION: 1. Pulmonary edema with small bilateral pleural effusions. 2. Patchy densities within the lower lobes posteriorly favor atelectasis/dependent change from the pleural effusions. A pneumonia is considered less likely but not entirely excluded. 3. Mild diffuse bronchial wall thickening. 4. A few scattered small patchy groundglass and nodular airspace opacities are nonspecific but may be due to the alveolar component of the pulmonary edema. ACT 112: Negative or not required by law. Electronically signed by: Nilo Mclean M.D. 04/07/2023 4:50 PM Code Status & VTE Plan Code Status Full code, as discussed with son VTE Prophylaxis Plan VTE Prophylaxis will be ordered: Yes PG Care Time/CCT Total # of Minutes Spent Total Time Spent with Patient: Total time spent is greater than 50% in coordination of care (as documented) at patient's floor/unit and/or counseling patient: Coding Level of Care Code 77368 INT INP/OBS CARE 3/75MIN Diagnoses Acute respiratory failure with hypoxia J96.01 CKD (chronic kidney disease) stage 4, GFR 15-29 ml/min N18.4 Junctional rhythm I49.8 Vitamin D deficiency E55.9 HLD (hyperlipidemia) E78.5 HTN (hypertension) I10 Diabetes mellitus E11.9 Hyponatremia E87.1 Chronic low back pain M54.50; G89.29 Pulmonary edema J81.1 Aspiration pneumonia J69.0
[2023-04-07] MEDS ORDERED: GLUCOSE 40% GEL 15 GM TUBE PO PRN (19:43)
[2023-04-07] MEDS ORDERED: DEXTROSE 50% 50 ML SYRINGE IV PRN (19:43)
[2023-04-07] MEDS ORDERED: GLUCOSE 10 TAB/TUBE PO PRN (19:43)
[2023-04-07] MEDS ORDERED: CARBOHYDRATES FOR HYPOGLYCEMIA PO PRN (19:43)
[2023-04-07] MEDS ORDERED: GLUCAGON FOR INJ 1 MG VIAL SQ PRN (19:43)
[2023-04-07] MEDS: INSULIN ASPART PER UNIT CHARGE SC SCH (20:36)
[2023-04-07] MEDS ORDERED: ACETAMINOPHEN 325 MG TAB PO PRN (22:56)
[2023-04-07] MEDS ORDERED: ONDANSETRON INJ 2 MG/ML 2 ML VIAL IV PRN (22:56)
[2023-04-07] MEDS ORDERED: CEFEPIME 2,000 MG in SYRINGE 0 ML IV STA (23:23)
[2023-04-07 23:51] LABS: Albumin Level 4.1 gm/dl (3.4-5.0); BUN Creatinine Ratio 10.9 (10-20); Calcium 8.6 mg/dl (8.6-10.3); Est GFR (African American) 17.3 ml/min; Est GFR (Non-African American) 14.9 ml/min; Magnesium 2.6 mg/dl (1.7-2.4); Phosphorus 3.9 mg/dl (2.5-4.9); Potassium 5.9 mmol/L (3.5-5.1)
[2023-04-08 01:33] LABS: BUN Creatinine Ratio 11.1 (10-20); Calcium 8.7 mg/dl (8.6-10.3); Creatinine Clr Calc Pharmacy 13.7 ml/min; Est GFR (African American) 17.1 ml/min; Est GFR (Non-African American) 14.7 ml/min
[2023-04-08] MEDS ORDERED: ACETAMINOPHEN 1,000 MG/100 ML VIAL IV STA (04:36)
[2023-04-08 07:56] LABS: Basophils # (auto) 0.01 K/uL (0-0.2); Basophils % (auto) 0.1 %; Hematocrit (blood only) 34.6 % (37.0-47.0); Hemoglobin 11.9 g/dl (12.0-16.0); Immature Granulocytes # (auto) 0.04 K/uL (0.01-0.20); Immature Granulocytes % (auto) 0.3 %; Lymphocytes # (auto) 1.05 K/uL (1.2-3.4); Lymphocytes % (auto) 8.3 %; Mean Corpuscular Hemoglobin 29.3 pg (25.0-34.0); Mean Corpuscular Hgb Conc 34.4 g/dL (32.0-36.0); Mean Corpuscular Volume 85.2 fL (80.0-100.0); Mean Platelet Volume 10.4 fL (9.4-12.4); Monocytes % (auto) 6.3 %; Platelet Count 190 K/uL (130-400); RDW Coefficient of Variation 13.4 % (11.5-14.5); RDW Standard Deviation 41.7 fL (36.4-46.3); Red Blood Count 4.06 M/uL (4.20-5.40)
[2023-04-08 08:20] LABS: Albumin Globulin Ratio 1.3 (0.9-2); Albumin Level 3.9 gm/dl (3.4-5.0); Bilirubin,Total 0.7 mg/dl (0.2-1.0); Calcium 8.5 mg/dl (8.6-10.3); Creatinine Clr Calc Pharmacy 13.9 ml/min; Est GFR (African American) 17.3 ml/min; Est GFR (Non-African American) 14.9 ml/min; Magnesium 2.5 mg/dl (1.7-2.4); Total Protein 6.9 gm/dl (6.0-8.3)
[2023-04-08] MEDS: FUROSEMIDE 40 MG/4 ML VIAL IV SCH (09:25)
[2023-04-08] MEDS: INSULIN ASPART PER UNIT CHARGE SC SCH ×4 (09:25→20:07)
--- NOTE | 2023-04-08 09:57 | XCELERA ---
[id number] \\[email or web address]\[id number]
[2023-04-08] MEDS ORDERED: PANTOprazole 40 MG in SYRINGE 0 ML IV SCH (11:00)
[2023-04-08] MEDS: CEFEPIME 1,000 MG in SYRINGE 0 ML IV SCH ×2 (12:15→23:59)
--- NOTE | 2023-04-08 13:41 | Cardiology Consultation ---
Date of Consultation April 08, 2023 Assessment & Plan (1) Acute on chronic diastolic CHF (congestive heart failure): -she has responded well to intravenous diuretics. -uncertain etiology of her acute decompensation. -telmisartan currently on hold. (2) Junctional rhythm: -idioventricular rhythm at time of presentation. -now back in sinus rhythm with discontinuation of sotalol. -indication for sotalol unknown. (3) Aortic stenosis: -mild to moderate aortic stenosis on current echocardiogram. (4) HTN (hypertension): -adequate control currently. (5) HLD (hyperlipidemia): -resume rosuvastatin when able. History of Present Illness Attending Physician: Liborio Douglass MD History of Present Illness Mrs. Arenas is an 87-year-old female admitted yesterday with acute hypoxic respiratory failure and a significant bradycardia. This consultation was ordered to assist in her cardiac management. Note, patient previously saw a art tracer in [place], [place]. The patient was in her usual state of health until approximately 2 days prior to presentation when she began to experience abdominal discomfort and intermittent nausea and 1 episode of vomiting. She was brought to the emergency room for further care as she developed acute shortness of breath. On arrival here, she was noted to be in congestive heart failure by x-ray, CT scan, an examination. She responded well to intravenous diuretics. Also on arrival, patient was profoundly bradycardic with heart rate in 30s. Review of her EKG notes an idioventricular rhythm and complete left bundle- branch block. The patient had been on sotalol for unknown arrhythmia. That medication was held and she has now returned to sinus rhythm with a normal heart rate. The patient's memory of her cardiac history is poor. She recalls having 2 episodes of congestive heart failure throughout her life time. She is uncertain of the diagnosis of atrial fibrillation and is not sure why she is taking sotalol. Her currently, patient is resting comfortably in bed without complaints. Past medical and surgical history 1. Hypertension 2. Hypercholesterolemia 3. Chronic diastolic CHF 4. Diabetes mellitus 5. Chronic renal failure 6. Osteoporosis 7. DJD 8. Vitamin-D deficiency Social history , lives with her son Quit tobacco use 20 years ago No alcohol Family history Noncontributory Review of systems A 10 point review systems was undertaken and negative except that described above. Allergies Allergy/AdvReac Type Severity Reaction Status Date / Time Penicillins Allergy Unknown Hives Verified 04/07/23 17:46 Home Medications Medication Instructions Recorded Confirmed Type amlodipine 5 mg tablet 5 mg PO DAILY 01/08/22 04/07/23 History rosuvastatin 10 mg tablet 10 mg PO HS 01/08/22 04/07/23 History sotalol 80 mg tablet (Sotalol AF) 80 mg PO BID 01/08/22 04/07/23 History telmisartan 80 mg tablet 80 mg PO DAILY 01/08/22 04/07/23 History aspirin 81 mg capsule 81 mg PO DAILY #30 caps 12/08/22 04/07/23 Rx lancets 12/08/22 04/07/23 History loratadine 10 mg capsule 10 mg PO DAILY PRN allergy 12/08/22 04/07/23 Rx symptoms #30 caps sodium bicarbonate 325 mg tablet 325 mg PO BID PRN stomach upset #1 12/08/22 04/07/23 Rx tab fesoterodine 4 mg tablet,extended 4 mg PO DAILY 90 days #90 tabs 03/19/23 04/07/23 Rx release 24 hr (Toviaz) tramadol 50 mg tablet 50 mg PO Q6H PRN mod-severe pain 03/19/23 04/07/23 Rx 25 days #100 tabs nateglinide 60 mg tablet 60 mg PO AC #90 tabs 03/29/23 04/07/23 Rx levothyroxine 88 mcg tablet 88 mcg PO DAILY 04/07/23 04/07/23 History Patient History Medical History (Updated 04/08/23 @ 13:39 by Yahir Craig MD) Chronic low back pain CKD (chronic kidney disease) CKD (chronic kidney disease) stage 4, GFR 15-29 ml/min Diabetes mellitus HLD (hyperlipidemia) HTN (hypertension) Hyponatremia Influenza Osteoarthritis of back Vitamin D deficiency Family History (Updated 12/08/22 @ 11:21 by AURORA Das) Mother Ovarian cancer Father Mouth cancer Social History (Updated 12/08/22 @ 11:22 by AURORA Das) Smoking Status: Never smoker Tobacco Type: Cigarettes Second Hand Exposure: No; Do You Dip or Chew Tobacco: No; Hx Alcohol Use: No Hx Substance Use: No Preferred Language: Lao Communication Ability: Effective Visual Impairment: No Limitations Hearing Ability: Normal Production Supervisor Required: No Beliefs That Will Affect Care: None marital status: / Current Living Situation: Family Current Living Situation Comment: son and daughter in law current occupational status: retired Feels Safe at Home: Yes Childhood Exposure to Second-Hand Smoke: No Assistive Devices: None Physical Exam Physical Exam: In general is well-developed well-nourished elderly female in no acute distress. HEENT exam is negative. Neck is supple with full carotid upstrokes. No carotid bruits. Jugular is pressure is flat at 90. No thyromegaly. Cardiovascular exam reveals a regular rhythm with a normal S1 and S2. Heart sounds are distant. A 2/6 crescendo decrescendo systolic murmur is noted at the base. Lungs note decreased breath sounds at the bases but no rales. Abdomen is soft without bruits. Extremities reveal intact radial artery pulses bilaterally. Trace pretibial edema is noted. Results & Data Vital Signs (Past 12 Hours) Vital Signs Temp Pulse Resp BP Pulse Ox O2 Del Method O2 Flow Rate 04/08/23 11:59 37.1 C 64 18 120/58 L 91 Nasal Cannula 2 04/08/23 07:47 37.0 C 64 16 147/61 H 98 Nasal Cannula 2 04/08/23 03:38 36.8 C 59 L 18 165/83 H 97 Oxymask 5 04/08/23 01:45 48 L 165/67 H 97 Oxymask 5 Laboratory Results CBC notes hemoglobin of 11.9, medical crit 34.6, white count 12.6, platelet count [id number]. Electrolytes note a sodium of 123, potassium 5.0, chloride 93, bicarb 23, BUN 33, creatinine 2.76, and glucose of 101. High sensitivity troponin is normal at 4.8. Diagnostic Findings Echocardiogram notes normal left ventricular systolic function with ejection fraction of 60-65%. There was moderate left ventricular hypertrophy and [id number] aortic stenosis. EKG on arrival noted an idioventricular rhythm at 34 beats per minute. There was a complete left bundle-branch block. Chest x-ray notes cardiomegaly and interstitial pulmonary edema. CT scan of chest also notes pulmonary edema. PG Care Time/CCT Total # of Minutes Spent Total Time Spent with Patient: Total time spent is greater than 50% in coordination of care (as documented) at patient's floor/unit and/or counseling patient: Coding Level of Care Code 56097 INT INP/OBS CARE MIN Diagnoses Acute on chronic diastolic CHF (congestive heart failure) I50.33 Junctional rhythm I49.8 Aortic stenosis I35.0 HTN (hypertension) I10 HLD (hyperlipidemia) E78.5
--- NOTE | 2023-04-08 15:41 | Electrocardiogram Report ---
Test Reason : Blood Pressure : / mmHG Vent. Rate : 034 BPM Atrial Rate : 034 BPM P-R Int : 098 ms QRS Dur : 142 ms QT Int : 558 ms P-R-T Axes : 000 -33 084 degrees QTc Int : 419 ms Idioventricular rhythm Left axis deviation Left bundle branch block Abnormal ECG When compared with ECG of 07-APR-2023 14:17, Significant changes have occurred Confirmed by Yahir Craig ([id number]) on 04/08/2023 3:40:51 PM Referred By: REFERRED SELF Confirmed By:Yahir Craig
[2023-04-08 16:56] LABS: BUN Creatinine Ratio 12.3 (10-20); Calcium 8.6 mg/dl (8.6-10.3); Creatinine Clr Calc Pharmacy 13.4 ml/min; Est GFR (African American) 16.7 ml/min; Est GFR (Non-African American) 14.4 ml/min; Potassium 4.5 mmol/L (3.5-5.1)
--- NOTE | 2023-04-08 20:09 | Hospitalist Progress Note ---
Date of Service April 08, 2023 Assessment & Plan (1) Acute on chronic diastolic CHF (congestive heart failure): Plan: improved. cont IV lasix. suspect decompensation 2nd to junctional rhythm with poor forward flow. this is in the setting of CKD stage 4. echo today with preserved EF. moderate but doubt it is contributing to current clinical picture. (2) CKD (chronic kidney disease) stage 4, GFR 15-29 ml/min: Plan: baseline CrCl 20s baseline creatinine 2.1 to 2.3 BMP am mild rise in creatinine 2nd to junctional rhythm & #1 along with diuresis (3) HLD (hyperlipidemia): Plan: on crestor at home can hold until discharge (4) HTN (hypertension): Plan: sotalol d/c ARB on hold amlodipine on hold but resume if BPs remain elevated (5) Hyponatremia: Plan: severe acute/chronic presenting Na 121 now 126 with IV lasix diuresis BMP am of note - baseline Na level about 130 per records (6) Junctional rhythm: Plan: suspect 2nd to sotalol use in setting of CKD resolved continue telemetry (7) Acute respiratory failure with hypoxia: Plan: 2nd #1 improving (8) Aortic stenosis: Plan: moderate on echo today (9) Hyperkalemia: Plan: 2nd ARB use in the setting of CKD stage 4 and decompensated CHF resolved s/p diuresis BMP am (10) Diabetes mellitus: Plan: last a1c <6% in November 2022 oral therapy on hold loose novolog SSI BSG ac/hs (11) Hypothyroidism: Plan: last TSH 13.8 in November 2022 it appears based on pharmacy records her synthroid dose was increased from 88mcg to 100mcg daily repeat TSH in am to see if euthyroid (12) DVT prophylaxis: Plan: add heparin 5000 BID in am Plan if patient continues to improve with diuresis alone would d/c IV cefepime pneumonia unlikely COVID/flu/RSV pending will need PT/OT evals Admission and Anticipated Discharge Date Admission Date: April 07, 2023 Subjective patient with severe bradycardia overnight this ultimately resolved and now she is in NSR bradycardia was junctional patient has diuresed significantly since arrival and her breathing is "much better" some mild cough no fevers eating better today "can I go home tomorrow?" Review of Systems Review of Systems: gen - has not been out of bed much today cv - no orthopnea or chest pain pulm - no sputum; no wheezing GI - abd pain/nausea/emesis - resolved Physical Exam Physical Exam: gen - NAD, watching [employer] on TV; pleasant neck - JVD+ mouth - MMM heart - RRR, s1 s2, 2-3/6 holosystolic murmur RUSB lungs - diffuse rales b/l bases, extending 1/2 way up back; airation poor in bases abd - soft NT ND BS+ ext - <1+ edema, pulses 2= b/l psych - a/o x 3 Results & Data Results & Data Vital Signs (Past 12 Hours) Vital Signs Temp Pulse Resp BP Pulse Ox O2 Del Method O2 Flow Rate 04/08/23 19:16 36.6 C 65 18 157/70 H 90 Room Air 04/08/23 15:41 37.0 C 67 18 133/66 91 Room Air 04/08/23 11:59 37.1 C 64 18 120/58 L 91 Nasal Cannula 2 Laboratory Results Laboratory Results - last 24 hr 04/07/23 04/07/23 04/08/23 20:17 23:22 00:56 WBC RBC Hgb Hct MCV MCH MCHC RDW Std Deviation RDW Coeff of Jeremy Plt Count MPV Immature Gran % (Auto) Neut % (Auto) Lymph % (Auto) [place] % (Auto) Eos % (Auto) Baso % (Auto) Neut # (Auto) Lymph # (Auto) [place] # (Auto) Eos # (Auto) Baso # (Auto) Immature Gran # (Auto) Sodium 121 L 122 L Potassium 5.9 H D 6.0 H Chloride 94 L 94 L Carbon Dioxide 21 20 L Anion Gap 6 8 BUN 30 H 31 H Creatinine 2.76 H D 2.79 H Est Cr Clr Drug Dosing 14.0 13.7 Est GFR ( Amer) 17.3 17.1 Est GFR (Non-Af Amer) 14.9 14.7 BUN/Creatinine Ratio 10.9 11.1 Glucose 138 H 126 H POC Glucose 181 H Calcium 8.6 8.7 Phosphorus 3.9 Magnesium 2.6 H Total Bilirubin AST ALT Alkaline Phosphatase Total Protein Albumin 4.1 Globulin Albumin/Globulin Ratio 04/08/23 04/08/23 04/08/23 06:53 06:53 07:31 WBC 12.60 H RBC 4.06 L Hgb 11.9 L Hct 34.6 L MCV 85.2 MCH 29.3 MCHC 34.4 RDW Std Deviation 41.7 RDW Coeff of Jeremy 13.4 Plt Count 190 MPV 10.4 Immature Gran % (Auto) 0.3 Neut % (Auto) 85.0 Lymph % (Auto) 8.3 [place] % (Auto) 6.3 Eos % (Auto) 0.0 Baso % (Auto) 0.1 Neut # (Auto) 10.70 H Lymph # (Auto) 1.05 L [place] # (Auto) 0.80 H Eos # (Auto) 0.00 Baso # (Auto) 0.01 Immature Gran # (Auto) 0.04 Sodium 123 L Potassium 5.0 Chloride 93 L Carbon Dioxide 23 Anion Gap 7 BUN 33 H Creatinine 2.76 H Est Cr Clr Drug Dosing 13.9 Est GFR ( Amer) 17.3 Est GFR (Non-Af Amer) 14.9 BUN/Creatinine Ratio 12.0 Glucose 101 H POC Glucose 105 H Calcium 8.5 L Phosphorus Magnesium 2.5 H Total Bilirubin 0.7 AST 27 ALT 27 Alkaline Phosphatase 86 Total Protein 6.9 Albumin 3.9 Globulin 3.0 Albumin/Globulin Ratio 1.3 04/08/23 04/08/23 04/08/23 11:14 15:52 16:24 WBC RBC Hgb Hct MCV MCH MCHC RDW Std Deviation RDW Coeff of Jeremy Plt Count MPV Immature Gran % (Auto) Neut % (Auto) Lymph % (Auto) [place] % (Auto) Eos % (Auto) Baso % (Auto) Neut # (Auto) Lymph # (Auto) [place] # (Auto) Eos # (Auto) Baso # (Auto) Immature Gran # (Auto) Sodium 126 L Potassium 4.5 Chloride 93 L Carbon Dioxide 24 Anion Gap 9 BUN 35 H Creatinine 2.85 H Est Cr Clr Drug Dosing 13.4 Est GFR ( Amer) 16.7 Est GFR (Non-Af Amer) 14.4 BUN/Creatinine Ratio 12.3 Glucose 113 H POC Glucose 115 H 116 H Calcium 8.6 Phosphorus Magnesium Total Bilirubin AST ALT Alkaline Phosphatase Total Protein Albumin Globulin Albumin/Globulin Ratio 04/08/23 20:02 WBC RBC Hgb Hct MCV MCH MCHC RDW Std Deviation RDW Coeff of Jeremy Plt Count MPV Immature Gran % (Auto) Neut % (Auto) Lymph % (Auto) [place] % (Auto) Eos % (Auto) Baso % (Auto) Neut # (Auto) Lymph # (Auto) [place] # (Auto) Eos # (Auto) Baso # (Auto) Immature Gran # (Auto) Sodium Potassium Chloride Carbon Dioxide Anion Gap BUN Creatinine Est Cr Clr Drug Dosing Est GFR ( Amer) Est GFR (Non-Af Amer) BUN/Creatinine Ratio Glucose POC Glucose 142 H Calcium Phosphorus Magnesium Total Bilirubin AST ALT Alkaline Phosphatase Total Protein Albumin Globulin Albumin/Globulin Ratio PG Care Time/CCT Total # of Minutes Spent Total Time Spent with Patient: Total time spent is greater than 50% in coordination of care (as documented) at patient's floor/unit and/or counseling patient: Coding Level of Care Code 22114 SUB INP/OBS CARE 2/35MIN Diagnoses Acute on chronic diastolic CHF (congestive heart failure) I50.33 CKD (chronic kidney disease) stage 4, GFR 15-29 ml/min N18.4 HLD (hyperlipidemia) E78.5 HTN (hypertension) I10 Hyponatremia E87.1 Junctional rhythm I49.8 Acute respiratory failure with hypoxia J96.01 Aortic stenosis I35.0 Hyperkalemia E87.5 Diabetes mellitus E11.9 Hypothyroidism E03.9 DVT prophylaxis Z29.9
[2023-04-08 21:44] LABS: Influenza A virus by PCR Negative (Neg); Influenza B virus by PCR Negative (Neg); RSV by PCR Negative (Neg); SARS CoV2 RNA(COVID-19) Ceph NEGATIVE (Negative)
[2023-04-09 08:16] LABS: BUN Creatinine Ratio 13.7 (10-20); Calcium 8.7 mg/dl (8.6-10.3); Est GFR (African American) 16.7 ml/min; Est GFR (Non-African American) 14.4 ml/min; Potassium 4.1 mmol/L (3.5-5.1)
[2023-04-09] MEDS: INSULIN ASPART PER UNIT CHARGE SC SCH ×4 (09:27→20:56)
[2023-04-09] MEDS: PANTOprazole 40 MG TAB PO SCH (09:28)
[2023-04-09] MEDS: FUROSEMIDE 40 MG/4 ML VIAL IV SCH (09:28)
[2023-04-09] MEDS: LEVOTHYROXINE SODIUM 100 MCG TABLET PO SCH (12:06)
[2023-04-09] MEDS: CEFEPIME 1,000 MG in SYRINGE 0 ML IV SCH (12:14)
--- NOTE | 2023-04-09 12:28 | Cardiology Progress Note ---
Date of Service April 09, 2023 Assessment & Plan (1) Acute on chronic diastolic CHF (congestive heart failure): Plan: -continues to diurese on on IV Lasix. -uncertain etiology of her acute decompensation (? bradycardia). -telmisartan currently on hold. (2) Junctional rhythm: Plan: -idioventricular rhythm at time of presentation. -now back in sinus rhythm with discontinuation of sotalol. -indication for sotalol unknown. (3) Aortic stenosis: Plan: -mild to moderate aortic stenosis on current echocardiogram. (4) HTN (hypertension): Plan: -adequate control currently. (5) HLD (hyperlipidemia): Plan: -resume rosuvastatin when able. Admission and Anticipated Discharge Date Admission Date: April 07, 2023 Subjective The patient is resting comfortably in bedside chair without complaints of chest pain or dyspnea. She is anxious for hospital discharge. Physical Exam Physical Exam: In general is well-developed well-nourished elderly female in no acute distress. HEENT exam is negative. Neck is supple with full carotid upstrokes. No carotid bruits. Jugular is pressure is flat at 90. No thyromegaly. Cardiovascular exam reveals a regular rhythm with a normal S1 and S2. Heart sounds are distant. A 2/6 crescendo decrescendo systolic murmur is noted at the base. Lungs note decreased breath sounds at the bases but no rales. Abdomen is soft without bruits. Extremities reveal intact radial artery pulses bilaterally. Trace pretibial edema is noted. 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 PG Care Time/CCT Total # of Minutes Spent Total Time Spent with Patient: Total time spent is greater than 50% in coordination of care (as documented) at patient's floor/unit and/or counseling patient: Coding Level of Care Code 75726 SUB INP/OBS CARE 3/50MIN Diagnoses Acute on chronic diastolic CHF (congestive heart failure) I50.33 Junctional rhythm I49.8 Aortic stenosis I35.0 HTN (hypertension) I10 HLD (hyperlipidemia) E78.5
--- NOTE | 2023-04-09 20:28 | Hospitalist Progress Note ---
Date of Service April 09, 2023 Assessment & Plan (1) Acute on chronic diastolic CHF (congestive heart failure): Plan: improved once again. cont IV lasix 40mg daily. suspect decompensation 2nd to junctional rhythm with poor forward flow. this is in the setting of CKD stage 4 which will also contribute to decompensation. echo with preserved EF. moderate but doubt it is contributing to current clinical picture. (2) CKD (chronic kidney disease) stage 4, GFR 15-29 ml/min: Plan: baseline CrCl 20s baseline creatinine 2.1 to 2.3 BMP am mild rise in creatinine 2nd to junctional rhythm & #1 along with diuresis (2.8 today) follow carefullly (3) HLD (hyperlipidemia): Plan: on crestor at home can hold until discharge (4) HTN (hypertension): Plan: sotalol d/c ARB on hold amlodipine on hold but resume in am (5) Hyponatremia: Plan: severe acute/chronic presenting Na 121 now 128 with IV lasix diuresis BMP am of note - baseline Na level about 130 per records (6) Junctional rhythm: Plan: suspect 2nd to sotalol use in setting of CKD resolved continue telemetry - remains NSR (7) Acute respiratory failure with hypoxia: Plan: 2nd #1 improving some ? of pneumonia at time of admission but I do not suspect such COVID/flu/RSV negative d/c cefepime (8) Aortic stenosis: Plan: moderate on echo (9) Hyperkalemia: Plan: 2nd ARB use in the setting of CKD stage 4 and decompensated CHF resolved s/p diuresis BMP am (10) Diabetes mellitus: Plan: last a1c <6% in November 2022 oral therapy on hold loose novolog SSI BSG ac/hs (11) Hypothyroidism: Plan: last TSH 13.8 in November 2022 it appears based on pharmacy records her synthroid dose was increased from 88mcg to 100mcg daily repeat TSH today wnl cont synthroid 100mcg daily (12) DVT prophylaxis: Plan: add heparin 5000 BID in am Plan PT, OT left message for pt's son this evening on his voicemail Admission and Anticipated Discharge Date Admission Date: April 07, 2023 Subjective tele NSR overnight remains on NC O2 was sitting in chair during the visit did work with PT she continues to improve with her breathing denies any significant dyspnea moving about the room no chest pain eating well minimal cough Review of Systems Review of Systems: gen - no fevers/chills cv - no PND, no chest pain, edema improved pulm - no sputum GI - no abd pain/nausea/emesis Physical Exam Physical Exam: gen - NAD, looks good, sitting in chair neck - no JVD sitting upright in chair mouth - MMM heart - RRR, s1 s2, 2-3/6 holosystolic murmur RUSB lungs - rales remain but less today (only bases; previous 1/2 way up back); airation poor in bases; no wheezes abd - soft NT ND BS+ ext - trace edema b/l feet/ankles, pulses 2= b/l psych - a/o x 3 Results & Data Results & Data Vital Signs (Past 12 Hours) Vital Signs Temp Pulse Resp BP Pulse Ox Pulse Ox Pulse Ox 04/09/23 20:02 36.3 C L 59 L 18 155/69 H 100 04/09/23 16:55 36.5 C 53 L 18 149/81 H 100 04/09/23 14:24 98 94 04/09/23 10:41 36.8 C 58 L 20 125/73 100 O2 Del Method O2 Flow Rate O2 Flow Rate O2 Flow Rate 04/09/23 20:02 Nasal Cannula 2 04/09/23 16:55 Nasal Cannula 2.5 04/09/23 14:24 2 2 04/09/23 10:41 Nasal Cannula 2 Laboratory Results Laboratory Results - last 24 hr 04/08/23 04/09/23 04/09/23 Unknown 06:36 06:36 Sodium 128 L Potassium 4.1 Chloride 93 L Carbon Dioxide 25 Anion Gap 10 BUN 39 H Creatinine 2.85 H Est Cr Clr Drug Dosing 13.0 Est GFR ( Amer) 16.7 Est GFR (Non-Af Amer) 14.4 BUN/Creatinine Ratio 13.7 Glucose 81 POC Glucose Calcium 8.7 TSH 1.532 SARS-CoV-2 (PCR) NEGATIVE Influenza Type A (PCR) Negative Influenza Type B (PCR) Negative RSV (RT-PCR) Negative 04/09/23 04/09/23 04/09/23 07:14 11:12 16:17 Sodium Potassium Chloride Carbon Dioxide Anion Gap BUN Creatinine Est Cr Clr Drug Dosing Est GFR ( Amer) Est GFR (Non-Af Amer) BUN/Creatinine Ratio Glucose POC Glucose 85 113 H 128 H Calcium TSH SARS-CoV-2 (PCR) Influenza Type A (PCR) Influenza Type B (PCR) RSV (RT-PCR) 04/09/23 20:25 Sodium Potassium Chloride Carbon Dioxide Anion Gap BUN Creatinine Est Cr Clr Drug Dosing Est GFR ( Amer) Est GFR (Non-Af Amer) BUN/Creatinine Ratio Glucose POC Glucose 133 H Calcium TSH SARS-CoV-2 (PCR) Influenza Type A (PCR) Influenza Type B (PCR) RSV (RT-PCR) PG Care Time/CCT Total # of Minutes Spent Total Time Spent with Patient: Total time spent is greater than 50% in coordination of care (as documented) at patient's floor/unit and/or counseling patient: Coding Level of Care Code 85483 SUB INP/OBS CARE 235MIN Diagnoses Acute on chronic diastolic CHF (congestive heart failure) I50.33 CKD (chronic kidney disease) stage 4, GFR 15-29 ml/min N18.4 HLD (hyperlipidemia) E78.5 HTN (hypertension) I10 Hyponatremia E87.1 Junctional rhythm I49.8 Acute respiratory failure with hypoxia J96.01 Aortic stenosis I35.0 Hyperkalemia E87.5 Diabetes mellitus E11.9 Hypothyroidism E03.9 DVT prophylaxis Z29.9
[2023-04-10] MEDS: LEVOTHYROXINE SODIUM 100 MCG TABLET PO SCH (05:49)
[2023-04-10 07:32] LABS: Calcium 9.1 mg/dl (8.6-10.3); Potassium 4.1 mmol/L (3.5-5.1)
[2023-04-10 07:38] LABS: BUN Creatinine Ratio 15.8 (10-20); Creatinine Clr Calc Pharmacy 12.8 ml/min; Est GFR (African American) 16.7 ml/min; Est GFR (Non-African American) 14.4 ml/min
[2023-04-10] MEDS: INSULIN ASPART PER UNIT CHARGE SC SCH ×4 (08:03→21:06)
[2023-04-10] MEDS: amLODIPine BESYLATE 5 MG TAB PO SCH (09:35)
[2023-04-10] MEDS: PANTOprazole 40 MG TAB PO SCH (09:35)
[2023-04-10] MEDS: HEPARIN SOD 5,000 UNIT/0.5 ML VIAL SQ SCH ×2 (09:35→21:09)
[2023-04-10] MEDS: FUROSEMIDE 40 MG/4 ML VIAL IV SCH (09:35)
--- NOTE | 2023-04-10 16:23 | Hospitalist Progress Note ---
Date of Service April 10, 2023 Assessment & Plan (1) Acute on chronic diastolic CHF (congestive heart failure): Plan: cont to improve with stable renal function. cont IV lasix 40mg daily. suspect decompensation 2nd to junctional rhythm with poor forward flow at time of admission. this is in the setting of CKD stage 4 which will also contribute to decompensation. echo with preserved EF. moderate but doubt it is contributing to current clinical picture. BMP in am. remove au. (2) CKD (chronic kidney disease) stage 4, GFR 15-29 ml/min: Plan: baseline CrCl 20s baseline creatinine 2.1 to 2.3 Cr today 2.8 and stable BMP am mild rise in creatinine from her baseline 2nd to junctional rhythm & #1 along with diuresis (3) HLD (hyperlipidemia): Plan: on crestor at home can hold until discharge (4) HTN (hypertension): Plan: sotalol d/c ARB on hold amlodipine resumed BPs have improved with diuresis (5) Hyponatremia: Plan: severe acute/chronic presenting Na 121 now 129 with IV lasix diuresis BMP am of note - baseline Na level about 130 per records (6) Junctional rhythm: Plan: suspect 2nd to sotalol use in setting of CKD resolved - no recurrence continue telemetry - remains NSR (7) Acute respiratory failure with hypoxia: Plan: 2nd #1 resolved he is off O2 some ? of pneumonia at time of admission but I do not suspect such COVID/flu/RSV negative abx were d/c yesterday (8) Aortic stenosis: Plan: moderate on echo (9) Hyperkalemia: Plan: 2nd ARB use in the setting of CKD stage 4 and decompensated CHF resolved s/p diuresis (10) Diabetes mellitus: Plan: last a1c <6% in November 2022 oral therapy on hold loose novolog SSI BSG ac/hs (11) Hypothyroidism: Plan: last TSH 13.8 in November 2022 it appears based on pharmacy records her synthroid dose was increased from 88mcg to 100mcg daily repeat TSH this admission wnl cont synthroid 100mcg daily (12) DVT prophylaxis: Plan: heparin 5000 BID in am Plan PT, OT - borderline needing rehab vs returning home with HH and son's help (she lives w/ son) left message for pt's son yesterday evening on his voicemail Admission and Anticipated Discharge Date Admission Date: April 07, 2023 Subjective patient feeling well sitting in chair when I arrived tele overnight - NSR or mild sinus behzad denies dyspnea at rest or with walking no cough eating well asks when she can d/c home Review of Systems Review of Systems: gen - no fevers or chills cv - no cp, no orthopnea overnight, no PND overnight GI - no nausea/emesis pulm - no wheezing Physical Exam Physical Exam: gen - NAD, looks great, sitting in chair neck - no JVD sitting upright in chair mouth - MMM heart - RRR, s1 s2, 2-3/6 holosystolic murmur RUSB lungs - rales MUCH improved (mild at best lower posterior lungs); airation improved; no wheezes abd - soft NT ND BS+ ext - trace edema b/l feet/ankles, pulses 2= b/l psych - a/o x 3 Results & Data Results & Data Vital Signs (Past 12 Hours) Vital Signs Temp Pulse Pulse Resp BP Pulse Ox O2 Del Method 04/10/23 15:56 54 L 04/10/23 10:31 36.4 C L 56 L 18 135/55 L 94 Room Air 04/10/23 08:00 Room Air 04/10/23 07:45 36.6 C 60 16 155/56 H 100 Room Air 04/10/23 07:23 55 L Laboratory Results Laboratory Results - last 24 hr 04/10/23 04/10/23 04/10/23 06:14 07:20 12:11 Sodium 129 L Potassium 4.1 Chloride 91 L Carbon Dioxide 28 Anion Gap 10 BUN 45 H Creatinine 2.84 H Est Cr Clr Drug Dosing 12.8 Est GFR ( Amer) 16.7 Est GFR (Non-Af Amer) 14.4 BUN/Creatinine Ratio 15.8 Glucose 86 POC Glucose 95 139 H Calcium 9.1 04/10/23 04/10/23 16:32 20:24 Sodium Potassium Chloride Carbon Dioxide Anion Gap BUN Creatinine Est Cr Clr Drug Dosing Est GFR ( Amer) Est GFR (Non-Af Amer) BUN/Creatinine Ratio Glucose POC Glucose 132 H 114 H Calcium PG Care Time/CCT Total # of Minutes Spent Total Time Spent with Patient: Total time spent is greater than 50% in coordination of care (as documented) at patient's floor/unit and/or counseling patient: Coding Level of Care Code 75846 SUB INP/OBS CARE 235MIN Diagnoses Acute on chronic diastolic CHF (congestive heart failure) I50.33 CKD (chronic kidney disease) stage 4, GFR 15-29 ml/min N18.4 HLD (hyperlipidemia) E78.5 HTN (hypertension) I10 Hyponatremia E87.1 Junctional rhythm I49.8 Acute respiratory failure with hypoxia J96.01 Aortic stenosis I35.0 Hyperkalemia E87.5 Diabetes mellitus E11.9 Hypothyroidism E03.9 DVT prophylaxis Z29.9
[2023-04-11] MEDS: LEVOTHYROXINE SODIUM 100 MCG TABLET PO SCH (05:41)
[2023-04-11] MEDS: HEPARIN SOD 5,000 UNIT/0.5 ML VIAL SQ SCH (08:46)
[2023-04-11] MEDS: INSULIN ASPART PER UNIT CHARGE SC SCH ×2 (08:46→12:09)
[2023-04-11] MEDS: amLODIPine BESYLATE 5 MG TAB PO SCH (08:46)
[2023-04-11] MEDS: PANTOprazole 40 MG TAB PO SCH (08:46)
[2023-04-11 09:11] LABS: Calcium 9.2 mg/dl (8.6-10.3); Potassium 3.9 mmol/L (3.5-5.1)
[2023-04-11 09:17] LABS: BUN Creatinine Ratio 19.1 (10-20); Creatinine Clr Calc Pharmacy 12.5 ml/min; Est GFR (African American) 16.1 ml/min; Est GFR (Non-African American) 13.9 ml/min
--- NOTE | 2023-04-11 15:23 | Discharge Summary ---
Date of Service date of admission - April 07, 2023 date of discharge - April 11, 2023 Admission HPI Per Admitting Provider The patient is a 87-year-old female with a past medical history including vitamin D deficiency, CKD stage IV, hyperlipidemia, hypertension, chronic low back pain, diabetes mellitus and hyponatremia. The patient was in her usual state of health until approximately 2 days prior to presentation when she began to experience abdominal discomfort and intermittent nausea and 1 episode of vomiting. She was brought to the emergency room for further care as she developed acute shortness of breath. On arrival here, she was noted to be in congestive heart failure by x-ray, CT scan, an examination. She responded well to intravenous diuretics. Also on arrival, patient was profoundly bradycardic with heart rate in 30s. Review of her EKG notes an idioventricular rhythm and complete left bundle- branch block. The patient had been on sotalol for unknown arrhythmia. That medication was held at time of admission. The patient's memory of her cardiac history is poor. She recalls having 2 episodes of congestive heart failure throughout her life time. She is uncertain of the diagnosis of atrial fibrillation and is not sure why she is taking sotalol. Significant laboratories at admission: WBC 12.18, sodium 122, creatinine 2.39, glucose 169. Principal Diagnosis 1. bradycardia due to junctional rhythm - resolved 2. acute on chronic diastolic congestive heart failure - due to #1 - resolved 3. chronic kidney disease stage 4 4. aortic stenosis 5. hypertension 6. history of diabetes 7. acute/chronic hyponatremia; admission sodium 121; discharge sodium 131 Discharge Exam gen - NAD, looks well neck - no JVD mouth - MMM heart - RRR, s1 s2, 2-3/6 holosystolic murmur RUSB lungs - minimal rales bases; airation improved bases; no wheezes abd - soft NT ND BS+ ext - trace edema b/l feet/ankles, pulses 2+ b/l psych - a/o x 3 Discharge Data Allergies Allergy/AdvReac Type Severity Reaction Status Date / Time Penicillins Allergy Unknown Hives Verified 04/19/23 12:53 penicillin AdvReac Uncoded 04/19/23 12:53 Consultations Cardiology - Mata Craig MD PT, OT Procedures Performed echocardiogram: Ordered Studies Chest X-Ray 04/07/23 14:53 XR chest 1V portable CLINICAL HISTORY: hypoxic TECHNIQUE: Single frontal radiograph of the chest was obtained. Comparison: None available at the time of this dictation. FINDINGS: No lines and tubes are seen. Cardiomegaly is noted. Reticular interstitial opacities are seen. No evidence of pleural effusion or pneumothorax. IMPRESSION: No acute chest disease. ACT 112: Negative or not required by law. Electronically signed by: Oscar Almazan M.D. 04/07/2023 3:18 PM Abdomen/Pelvis CT 04/07/23 15:45 CT abd pelvis wo con CLINICAL HISTORY: abd pain TECHNIQUE: Helical axial images of the abdomen and pelvis were obtained. Automated dose lowering techniques and/or adjustment according to patient size were utilized for this exam. This exam was performed without intravenous contrast. COMPARISON: None available at the time of this dictation. FINDINGS: Lower chest: Bibasilar atelectasis versus scarring is seen. Small bilateral pleural effusions are seen with underlying atelectasis. Liver: Unremarkable. No focal lesions are seen. Gallbladder and biliary tree: No calcified gallstones. Normal caliber wall. No intra- or extrahepatic biliary ductal dilation. Pancreas: Unremarkable, no focal lesions. Spleen: Unremarkable. Adrenals: Unremarkable. Kidneys and ureters: Perinephric stranding is noted bilaterally. Bladder: Unremarkable. Reproductive organs: Unremarkable. Bowel: Small stool burden is seen. No evidence of obstruction. Lymph nodes Retroperitoneal: Unremarkable. Pelvic: Unremarkable. Mesenteric: Unremarkable. Peritoneum: Normal. Vessels: Atherosclerotic calcifications are seen. Abdominal wall: Unremarkable. Bones: Degenerative changes in the visualized spine. IMPRESSION: No acute abnormalities. No evidence of obstruction, there is a small stool burden. ACT 112: Negative or not required by law. Electronically signed by: Oscar Almazan M.D. 04/07/2023 4:[address] 04/07/23 16:17 CT chest diagnostic wo con CT DOSE: 2192.00 mGy.cm HISTORY: Nausea. TECHNIQUE: Multiaxial CT images of the chest were performed without contrast. A dose lowering technique was utilized adhering to the principles of ALARA. COMPARISON: None. FINDINGS: There is respiratory motion artifact. Mild diffuse bronchial wall thickening. No pneumothorax. There are small bilateral pleural effusions. Interlobular septal thickening consistent with mild pulmonary edema. There is a punctate calcified granuloma within the right upper lobe. A few additional small scattered patchy groundglass and nodular airspace opacities are nonspecific but may be due to the alveolar component of the pulmonary edema. Patchy densities within the lungs posteriorly favor dependent change/atelectasis from the pleural effusions. There are few additional scattered punctate calcified granulomas within the lungs. No acute fractures within the chest. Limited views of the upper abdomen demonstrate a normal liver, spleen, and adrenal glands. Calcified plaque within the normal caliber thoracic aorta. The heart is normal in size. No pericardial effusion. Moderate coronary artery calcifications are noted. Normal caliber esophagus. No mediastinal or hilar lymphadenopathy. IMPRESSION: 1. Pulmonary edema with small bilateral pleural effusions. 2. Patchy densities within the lower lobes posteriorly favor atelectasis/dependent change from the pleural effusions. A pneumonia is considered less likely but not entirely excluded. 3. Mild diffuse bronchial wall thickening. 4. A few scattered small patchy groundglass and nodular airspace opacities are nonspecific but may be due to the alveolar component of the pulmonary edema. ACT 112: Negative or not required by law. Electronically signed by: Nilo Mclean M.D. 04/07/2023 4:50 PM Hospital Course (1) Junctional rhythm: Patient presented with severe bradycardia due to a junctional heart rhythm. This was likely 2nd to sotalol use in the setting of CKD. The sotalol was discontinued. Fortunately she converted back to NSR within 24 hours of admission and remained in NSR for the rest of her stay. She will remain off of sotalol and all AV ramón agents at this time. Due to the uncertainty of whether she has had a.fib in the past we will set her up with a heart monitor for home use. She has scheduled follow-up in the [facility] Cardiology clinic in April 2023. (2) Acute on chronic diastolic CHF (congestive heart failure): Suspect that her decompensation was 2nd to junctional rhythm with poor forward flow at time of admission. Her volume overload was also in the setting of CKD stage 4 which will contribute to decompensation. Echo this admission with preserved EF. Moderate was seen but doubt it was contributing to current clinical picture. Mrs Arenas diuresed well during her stay with improved lung exam, improved symptoms, and successful weaning of her NC O2. In the midst of her diuresis she developed a rise in creatinine. Thus, at time of discharge, she was asked to hold her lasix for now. (3) CKD (chronic kidney disease) stage 4, GFR 15-29 ml/min: baseline CrCl 20s baseline creatinine 2.1 to 2.3 Cr claude to 2.9 with diuresis at discharge she was asked to HOLD her ARB and to HOLD her lasix for now until a repeat BMP could be obtained about 3 days post-discharge (4) HLD (hyperlipidemia): continue crestor (5) HTN (hypertension): sotalol was d/c ARB was placed on hold due to rise in creatinine amlodipine resumed (5mg daily) BPs also improved with diuresis (6) Hyponatremia: severe acute/chronic presenting Na 121 improved to 131 with IV lasix diuresis of note - baseline Na level about 130 per records she will have a repeat BMP in 3 days post-discharge for stability (7) Acute respiratory failure with hypoxia: 2nd #1 and #2 resolved O2 was weaned off some ? of pneumonia at time of admission but I did not suspect such COVID/flu/RSV negative antibiotics were discontinued about 1-2 days into the stay (8) Aortic stenosis: moderate on echo (9) Hyperkalemia: 2nd ARB use in the setting of CKD stage 4 and decompensated CHF resolved s/p diuresis (10) Diabetes mellitus: last a1c <6% in November 2022 BSGs were well-controlled while here recommended holding nateglinide at discharge (11) Hypothyroidism: last TSH 13.8 in November 2022 it appears based on pharmacy records her synthroid dose was increased from 88mcg to 100mcg daily repeat TSH this admission wnl cont synthroid 100mcg daily will need a repeat TSH in about 6 weeks (12) REYES (acute kidney injury): likely 2nd to over-diuresis cannot rule out junctional bradycardia contributing as well creatinine at discharge was 2.9 ARB held at discharge diuretics held at discharge repeat BMP in 3 days post-discharge to ensure stability she also has f/u with Dr Ping Lucas - [facility] Nephrology - within a few days of discharge for her CKD Plan seen by PT, OT - will return home with her son with whom she lives and will receive home PT/OT Home Health Attestation I certify that this patient is under my care and that I, or a physicians activities assistant working with me, had a face to-face encounter that meets the home health [id number] encounter requirements with this patient. The encounter with the patient was in whole, or in part, for the following medical condition, which is the primary reason for home health care (list medical condition): CHF- bradycardia I certify that, based on my findings, the following services are medically necessary home health services: My clinical findings support the need for the above services because: OT Assess ADL Status and Restore Function w ADLs PT Assessment for Endurance / Balance / Strength PT Eval for Safety and Mobility PT Eval for Safety, Gait Training, Assistive Devices PT Gait and Balance Training, Strengthening and Safety Further, I certify that my clinical findings support that this patient is homebound (i.e. absences from home require considerable and taxing effort and are for medical reasons or scientologist services or infrequently or of short duration when for other reasons) because: Supportive Aid - Walker Transportation Assistance/Unable to Leave Home Unassisted Certification for Home Health Services: Based on the above findings, I certify that this patient is confined to the home and needs intermittent snf care, physical therapy and/or speech therapy or continues to need occupational therapy. The patient is under my care, and I have initiated the establishment of the plan of care. This patient will be followed by a physician who will periodically review the plan of care. Total Time Total Time Spent Total Time Spent (In Minutes): 45 Discharge Plan Discharge Items Patient Disposition: Home - Home Health Services Reason For Visit: CHF, BRADYCARDIA Discharge Diagnosis: 1. bradycardia (slow heart rate) - due to junctional rhythm - resolved 2. congestive heart failure - due to #1 - fluid retention markedly better 3. chronic kidney disease 4. aortic stenosis 5. hypertension 6. history of diabetes 7. hyponatremia (low sodium) - much improved; admission sodium was 121, now it is 131 Activity: Resume your previous activity Activity Comment: as tolerated Non-emergency contact: Primary Care Provider and Industrial Engineering Professor Call non-emergency contact if: you have any medication questions, your symptoms worsen and you have a fever Follow-up/Referrals: Tanner Tejeda MD [Physician] - 05/06/23 1:00 pm (you will need to follow with a pharmaceutical operator due to the recent heart rhythm problems; we will help you get an appointment with one at [facility]) Ping Lucas MD [Physician] - 04/14/23 3:40 pm (you will need to see nephrology within 5 days to recheck your kidney function and sodium levels) Calin Tobias, DO [Primary Care Provider] - 04/19/23 1:00 pm (5-7 days ) Diet: Carb Consistent or DM2 and Low Sodium (2gm) Fluids: 1500ml (6 cups) Addtl Attending Provider Instructions: Mrs Arenas, You were hospitalized due to fluid build-up in your lungs. This was due to congestive heart failure. Your heart rate had gotten low which likely then caused the congestive heart failure. In addition, chronic kidney disease predisposes a person to fluid retention as well. Fortunately the heart rate went back to normal, the fluid in your lungs is gone, and you are feeling better. Recommendations - 1. Please INCREASE your thyroid medication - levothyroxine - to 100mcg daily. I called in a new prescription for you. You will need your thyroid levels rechecked in about 6 weeks. 2. Blood work - please have repeat blood work THIS WEDNESDAY morning to recheck your kidney function and electrolytes. Once we have this back, and depending on how you feel, you may need to start on a water pill (diuretic) at home. I have prescribed furosemide for you which is a common diuretic. Just hold on to it and again we will determine when to start it. The lab orders are already in. You can have your blood work at any [facility]. 3. STOP your SOTALOL. 4. STOP your TELMISARTAN. 5. HOLD your toviaz for now. 6. HOLD your nateglinide as your blood sugars were normal the entire stay. 7. Check your weight every day on the same scale. If you gain more than 2-3 pounds over a 1-2 day period this is likely fluid weight gain. Please call one of your doctors if you are gaining weight. 8. Check your blood sugar at least once daily and write these down on a paper along with your daily weights. 9. We will arrange a 30-day heart monitor for home use. [facility] will coordinate this. We will be looking for abnormal heart rhythms that can sometimes cause congestive heart failure. Follow-up - we will arrange follow up appointments for you; we will work on this tomorrow Return to [facility] if - * you have fevers over 100 degrees * you have worsening shortness of breath * you have chest pains * any other concerns It was our pleasure to care for you! -Dr Rafat Gary Fire Watchman Provider Instructions: Call 911 and go to the Emergency Room if: * You have tightness or pain in your chest that does not go away with rest or Nitroglycerin * You are very short of breath even with rest Call your doctor if any of the following symptoms or problems start or get worse: * Shortness of breath or difficulty breathing * Wake up at night short of breath * Chest pain * Cough * Swelling of your hands, fee, or legs * More fatigued or tired with your normal activity * Palpitations - sudden fast heart beats WEIGHT * Weigh yourself every morning after using the bathroom. * Use the same scale. * Wear the same amount of clothing. * Write your weight down on your chart. * Call your doctor if you gain more than 2-3 pounds in 1-2 days. MEDICATIONS * Use this discharge instruction sheet for instructions. * Take your medications at the time your doctor ordered. * Do not skip a dose of your medicines. * If you miss a dose of medicine, take as soon as possible, but DO NOT DOUBLE A DOSE. * Read your medicine information when you get home. * Know all of the side effects of your medicine. * Call your doctor's office if you have any side effects. * Be sure all of your doctors know what medicine and herbs you take (including cold, flu, and herbal medicine). * Pain Medicine: If you do not get relief from your pain, please call your doctor for help. Take the following with you to your follow-up doctor appointments: * Weight Chart * Medication List * List of questions Do not drink excessive alcohol, beer or wine. Pending Studies at Discharge: No Stand-Alone Forms: My [facility] [place], Smoking Cessation Medications and DC Order Prescriptions: New furosemide [Lasix] 20 mg tablet 20 mg PO QAM Qty: 30 1RF Hold Instructions: unsure Continued aspirin 81 mg capsule 81 mg PO DAILY Qty: 30 2RF loratadine 10 mg capsule 10 mg PO DAILY PRN (Reason: allergy symptoms) Qty: 30 0RF (DME) lancets Misc See Rx Instructions .Route Rx Instructions: As directed sodium bicarbonate 325 mg tablet 325 mg PO BID PRN (Reason: stomach upset) Qty: 1 0RF amlodipine 5 mg tablet 5 mg PO DAILY rosuvastatin 10 mg tablet 10 mg PO HS Changed levothyroxine 100 mcg capsule 100 mcg PO DAILY Qty: 30 5RF Held fesoterodine [Toviaz] 4 mg tablet extended release 24 hr 4 mg PO DAILY 90 Days Qty: 90 0RF Hold Instructions: hold unless told to resume by your outpatient doctors Discontinued sotalol [Sotalol AF] 80 mg tablet 80 mg PO BID telmisartan 80 mg tablet 80 mg PO DAILY No Action tramadol 50 mg tablet 50 mg PO Q6H PRN (Reason: mod-severe pain) 25 Days Qty: 100 0RF Discharge Orders: Discharge Order (Routine); Ordered 04/11/23 Ordered By: Liborio Amezcua/Other Patient Handouts: Furosemide Oral Tablet Admission Data Admit Date/Time: 04/07/23 19:10 Attending Provider: Liborio Douglass Admit Provider: Jl Echols Primary Care Provider: Calin Tobias Other Providers: Aaron Batista ; [facility],Home Healthcare Other Interventions: Discharge Summary Assessment (RN) Last Done: 04/11/23 15:01 Coding Level of Care Code 28839 INP/OBS DISCH >30 MIN Diagnoses Junctional rhythm I49.8 Acute on chronic diastolic CHF (congestive heart failure) I50.33 CKD (chronic kidney disease) stage 4, GFR 15-29 ml/min N18.4 HLD (hyperlipidemia) E78.5 HTN (hypertension) I10 Hyponatremia E87.1 Acute respiratory failure with hypoxia J96.01 Aortic stenosis I35.0 Hyperkalemia E87.5 Diabetes mellitus E11.9 Hypothyroidism E03.9 REYES (acute kidney injury) N17.9
== END 2023-04-11 16:18 | disposition home health service (06) | DRG 189 ==
LOC: ED 13:40 → SUATTDRO 19:10 → 2S 19:10